=== PATIENT | female | born 2000 | race Caucasian/White ===

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

== ENCOUNTER → 2021-08-26 11:34 | Outpatient (CLI) | payer MEDICAID, SELFPAY ==
[2021-08-26 13:42] LABS: Absolute Lymphocyte Count 1.21 X10^3/uL (0.83-4.51); Absolute Neutrophil Count 4.8 X10^3/uL (2.0-7.7); Basophil# 0.02 X10^3/uL; Basophil% 0.3 % (0-1); Eosinophil# 0.12 X10^3/uL; Eosinophils% 1.7 % (0-5); Hematocrit 35.1 % (37-47); Hemoglobin 11.2 g/dL (12.0-15.0); Lymphocyte # 1.21 X10^3/ul (0.83-4.51); Lymphocyte % 17.6 % (19-41); Mean Corp Hgb Conc 31.9 g/dL (32-36); Mean Corpuscular Hgb 26.4 pg (27.0-32.0); Mean Corpuscular Volume 82.6 fL (81-99); Mean Platelet Vol. 9.8 fl (6.2-12.0); Monocyte# 0.69 X10^3/uL; NRBC Flagged by Analyzer 0 % (0-5); Neutrophil # 4.83 X10^3/uL (2.7-7.7); Neutrophil % 70.1 % (47-70); Platelet Count 296 K/mm3 (150-450); RBC Distribution Width CV 13.5 % (11.6-14.6); RBC Distribution Width SD 40.2 fl (35.1-43.9); Red Blood Count 4.25 M/mm3 (4.2-5.4); White Blood Count 6.9 K/mm3 (4.4-11.0)
[2021-08-26 14:02] LABS: Free T3 2.4 pg/mL (2.18-3.98); T4 Free Direct 0.76 ng/dL (0.76-1.46); Thyroid Stim Hormone (TSH) 1.93 uIU/mL (0.358-3.74)
[2021-08-26 14:31] LABS: HIV - WCH Non-Reactive (Nonreactive); Hepatitis B Surface Antigen Non-Reactive (Nonreactive); Hepatitis C Antibody Non-Reactive (Nonreactive); Rubella IgG Reactive (Nonreactive); Syphilis Antibodies Non-reactive
[2021-08-29 00:07] LABS: Chlamydia By Nucleic Acid AMP Negative (Negative)
[2021-08-29 14:30] LABS: Gonococcus By Nucleic Acid AMP Negative (Negative)
== END ==
PROVIDERS: PCP Pediatrics; Visit Provider Student in an Organized Health Care Education/Training Program
DX: Z11.3 Encounter for screening for infections with a predominantly sexual mode of transmission (principal); Z32.01 Encounter for pregnancy test, result positive
CPT/HCPCS: 36415; 84439; 84443; 84481; 85025; 86703; 86762; 86780; 86803; 87077; 87086; 87088; 87186; 87340; 87491; 87591

== ENCOUNTER → 2021-09-16 | Outpatient (CLI) | payer MEDICAID, SELFPAY | END | disposition home or self-care (01) | LOC: LABSPEC 09:52 | PROVIDERS: PCP Pediatrics; Visit Provider Student in an Organized Health Care Education/Training Program | DX: O26.891 Other specified pregnancy related conditions, first trimester (principal); R25.2 Cramp and spasm; Z3A.00 Weeks of gestation of pregnancy not specified | CPT/HCPCS: 87077; 87086; 87088; 87186 ==

== ENCOUNTER → 2021-10-14 17:06 | Outpatient (CLI) | payer MEDICAID, SELFPAY | PROVIDERS: PCP Pediatrics; Visit Provider Student in an Organized Health Care Education/Training Program | DX: R30.0 Dysuria (principal); Z34.82 Encounter for supervision of other normal pregnancy, second trimester | CPT/HCPCS: 87086 ==

== ENCOUNTER 2021-12-22 17:59 | Emergency (ER) | payer MEDICAID, SELFPAY ==
[2021-12-22 18:00] VITALS: BP 122/62; PULSE 81; RESP 14; TEMP 36.2; O2SAT 100; BMI 25.8
--- NOTE | 2021-12-22 18:11 | EX.ED.GENINJ ---
HPI History of Present Illness Chief Complaint: Laceration Informant: patient Onset/Context/Timing Onset: Today Current Severity: Mild Maximum Severity: Mild Narrative Narrative: Patient presents secondary to left thumb laceration as well as a small laceration to the right fifth finger. Patient states she was loading the prop maker tonight when a coffee cup broke. She has lacerations noted as above. She reports some tingling of the distal aspect of her left thumb. Patient reports her tetanus shot is up-to-date. [facility] Medical History (Updated 12/22/21 @ 18:[address] Randi Gordon MD) Graves disease Thyroid eye disease Home Medications [id number] [] 1 tab PO DAILY 12/22/21 [History Last Taken Unknown] Allergy/AdvReac Type Severity Reaction Status Date / Time latex Allergy Swelling Verified 12/22/21 18:00 Social History Smoking Status: Never smoker ROS ROS ED Constitutional Constitutional ED: Denies chills or fever(s) Eyes Eyes: Denies blurry vision or change in vision ENT ENT ED: Denies ear pain Cardiovascular Cardiovascular: Denies chest pain or palpitations Respiratory/Chest Respiratory/Chest: Denies cough or dyspnea Gastrointestinal Gastrointestinal: Denies abdominal pain, diarrhea or vomiting Genitourinary Genitourinary ED: Denies dysuria Musculoskeletal Musculoskeletal: Reports arthralgias Neurologic Neurologic: Reports paresthesias; Denies weakness Hematologic/Lymphatic Hematologic/Lymphatic: Denies easy bleeding or easy bruising Allergic/Immunologic Allergic/Immunologic ED: Denies mouth swelling or urticaria EXAM Physical Exam Const Vital Signs: 12/22/21 18:00 Temperature 97.2 F L Temperature Source Temporal Pulse Rate 81 Respiratory Rate 14 Blood Pressure 122/62 H Blood Pressure Mean 82 Pulse Ox 100 Oxygen Delivery Method Room Air Positive well nourished and well developed General Appearance ED: well developed Eyes PERRL and EOMs intact bilaterally Neck full ROM Chest Wall inspection of chest normal and palpation of chest normal Resp normal respiratory effort and clear to auscultation bilaterally Cardio regular rhythm Rate: regular rate GI GI Narrative: Gravid abdomen. Palpation: soft Extremity Extremity Narrative: Small, few millimeter laceration noted to the midportion of the right fifth finger. Bleeding well controlled. There is a 1 cm laceration to the IP joint of the left thumb along the radial side. Minimal active bleeding. Good cap refill distally. Patient does have sensation distally but states she also senses tingling. Neuro oriented x3 Sensorium / Orientation: alert Motor Exam: strength 5/5 throughout Skin Skin Narrative: Lacerations as above. PROC Procedures Lacerations Left thumb laceration: Length: 0.39 in Depth: Skin Shape: Linear Prep: Shure-Clens Laceration repair: Digital block Number of Sutures/[place]: 1 Suture Information: Ethilon, Simple and 5-0 Comment: 1 cc 2% lidocaine used digital block. Wound cleansed and irrigated. 1 simple interrupted suture 5-0 nylon placed. MDM MDM MDM Narrative Medical decision making narrative: Patient's tetanus is already up-to-date. Patient consented for suture repair. Please see procedure note for details. Treatment and Re-Evaluation Comments:: Wound care discussed. Patient to have suture removed in 5 to 7 days. Discharge Plan Triage Chief Complaint: Laceration ED Provider: Randi Gordon Dx/Rx/DC Orders Clinical Impression: Finger laceration Instructions: ED Laceration, Hand: All Closures Prescriptions: No Action 1 mg Tablet 1 tab PO DAILY RF: 0 Primary Care Provider: Jacobo Santiago Referrals: Jacobo Santiago MD [Primary Care Provider] - 5 Days for suture removal Disposition Disposition: Home, Self Care
[2021-12-22] MEDS: Lidocaine 1% (20 ml mdv) 20 ML Vial INFILT (18:45)
== END 2021-12-22 18:57 | disposition home or self-care (01) ==
PROVIDERS: Emergency Provider Emergency Medicine; PCP Pediatrics; Visit Provider Emergency Medicine
DX: S61.012A Laceration without foreign body of left thumb without damage to nail, initial encounter (principal); S61.216A Laceration without foreign body of right little finger without damage to nail, initial encounter; W25.XXXA Contact with sharp glass, initial encounter
CPT/HCPCS: 12001; 99283

== ENCOUNTER 2022-01-07 12:45 | Outpatient (CLI) | payer MEDICAID, SELFPAY ==
[2022-01-07] VITALS (9 sets, daily range): BP systolic 117–143; BP diastolic 57–77; PULSE 94–116; RESP 20; TEMP 36.6; O2SAT 99–100; BMI 25.4
[2022-01-07] MEDS: Betamethasone/Betamethasone 30 MG/5 ML Vial 12 MG IM (14:24)
[2022-01-07 14:30] LABS: Absolute Lymphocyte Count 2.03 X10^3/uL (0.83-4.51); Absolute Neutrophil Count 10.3 X10^3/uL (2.0-7.7); Basophil# 0.03 X10^3/uL; Basophil% 0.2 % (0-1); Eosinophil# 0.14 X10^3/uL; Hematocrit 32.1 % (37-47); Hemoglobin 9.9 g/dL (12.0-15.0); Lymphocyte # 2.03 X10^3/ul (0.83-4.51); Mean Corp Hgb Conc 30.8 g/dL (32-36); Mean Corpuscular Hgb 25.2 pg (27.0-32.0); Mean Corpuscular Volume 81.7 fL (81-99); Monocyte# 0.76 X10^3/uL; Monocyte% 5.6 % (0-10); NRBC Flagged by Analyzer 0.1 % (0-5); Neutrophil # 10.26 X10^3/uL (2.7-7.7); Neutrophil % 76.2 % (47-70); Platelet Count 270 K/mm3 (150-450); RBC Distribution Width CV 14.8 % (11.6-14.6); RBC Distribution Width SD 43.8 fl (35.1-43.9); Red Blood Count 3.93 M/mm3 (4.2-5.4); White Blood Count 13.5 K/mm3 (4.4-11.0)
[2022-01-07] MEDS: Lactated Ringers 1,000 ML 100 ML IV (14:30)
[2022-01-07] MEDS: Magnesium Sulfate 4gm/100mL 4 GM/100 ML IV.SOLN. IV (14:33)
[2022-01-07 14:36] LABS: Hematocrit 29.4 % (37-47); Hemoglobin 8.9 g/dL (12.0-15.0); Mean Corp Hgb Conc 30.3 g/dL (32-36); Mean Corpuscular Hgb 24.9 pg (27.0-32.0); Mean Corpuscular Volume 82.1 fL (81-99); Mean Platelet Vol. 9.4 fl (6.2-12.0); Platelet Count 277 K/mm3 (150-450); RBC Distribution Width CV 14.9 % (11.6-14.6); RBC Distribution Width SD 44.8 fl (35.1-43.9); Red Blood Count 3.58 M/mm3 (4.2-5.4); White Blood Count 11.8 K/mm3 (4.4-11.0)
[2022-01-07 14:40] LABS: Glucose Challenge Gest 1H 50g 85 mg/dL (70-140)
[2022-01-07 14:41] LABS: Partial Thromboplast Time 24.6 Seconds (24.1-36.2)
[2022-01-07 14:42] LABS: Fibrinogen 473 mg/dl (203-444)
--- NOTE | 2022-01-07 15:00 | PCM.HP.OB ---
HPI - General HPI Narrative NELLA WHITE, is a 21 F at 25 2/7 weeks gestation by [id number] US sent from the office with c/o lower abdominal and back pain, cramping, spotting x 3 days with decreased movement. Office US showed a 7.5 x 2.4 x 3.5cm bleed between the chorion and amnion. PFSH PFSH Medical History (Updated 01/07/22 @ 15:[address] Tamar Krause MD) Graves disease Thyroid eye disease Home Medications [id number] [] 1 tab PO DAILY 12/22/21 [History Last Taken 01/07/22 07:30 1 tab] Allergy/AdvReac Type Severity Reaction Status Date / Time latex Allergy Swelling Verified 01/07/22 14:08 Family History (Updated 01/07/22 @ 15:[address] Tamar Krause MD) Other Heart disease Surgical History (Updated 01/07/22 @ 15:[address] Tamar Krause MD) No history of previous surgery Social History Smoking Status: Never smoker History 4 Elective abortions 0 Hx Para 2 Spontaneous abortions 1 Hx # Term Pregnancies 1 Ectopic pregnancies Hx # Pregnancies 1 Multiple births # of living children 2 Past Pregnancies Del. Date Name GA/Weeks Outcome Route Bth Weight Infant Gen Labor Lgth Anesthesia Del Locatn Provider FOB Unknown Altaf 38 live - full term [id number] Male 19 epidural Unknown Sapna 35 live - [id number] Female 3 epidural Unknown 11 spontaneous Delivery Date: No notes to display [facility] Date: No notes to display NST FHR Rate Baby A Baseline: 140 Variability:: Minimal Accelerations:: None Decelerations:: Variable NST Reactive:: Appropriate for gestational age FHR Category:: Category II Uterine Activity:: 0-1/10 min Vital Signs Vital Signs Vital Signs: 01/07/22 13:59 01/07/22 14:35 01/07/22 14:40 Temperature 97.8 F Temperature Source Temporal Pulse Rate 94 103 H Blood Pressure 127/61 H BP Systolic 127 BP Diastolic 61 Pulse Ox 100 100 01/07/22 14:41 01/07/22 14:45 01/07/22 14:50 Temperature Temperature Source Pulse Rate 102 H 116 H 110 H Blood Pressure 122/61 H 117/59 L 124/63 H BP Systolic 122 117 124 BP Diastolic 61 59 63 Pulse Ox 100 99 01/07/22 14:55 Temperature Temperature Source Pulse Rate 107 H Blood Pressure 130/67 H BP Systolic 130 BP Diastolic 67 Pulse Ox 99 Weight Weight: 67.132 kg Body Mass Index (BMI) 25.4 Physical Exam Const alert and oriented x3 Constitutional Narrative: writhing intermittently HEENT normocephalic Head and Scalp: atraumatic Resp normal respiratory effort, normal air movement and clear to auscultation bilaterally Cardio regular rate and regular rhythm GI normal to inspection, nondistended, normoactive bowel sounds, soft to palpation, non-tender and non-distended Inspection: gravid external exam normal Narrative: SSE - no blood in vaginal vault, cervix appears closed SVE - closed, long, high Extremity full ROM Skin no rashes or lesions noted Psych mental status grossly normal Labs Labs Labs: Blood Type AB POSITIVE Antibody Screen Pending Hct 32.1 % (37-47) L Hgb 9.9 g/dL (12.0-15.0) L Syphilis Total Ab Non-reactive Rubella IgG Antibody Reactive (Nonreactive) Hep Bs Antigen Non-Reactive (Nonreactive) Neisseria gonorrhoeae DNA (SHELLY) Negative (Negative) HIV 1&2 Antibody Non-Reactive (Nonreactive) Glucose 1 Hr 50 gm 85 mg/dL (70-140) Group B Strep DNA Pending Miscellaneous Test Assessment & Plan (1) 25 weeks gestation of : PLAN: Office US - CEPHALIC, EFW 792g (39th%) (2) Placenta abruptio, antepartum: PLAN: Magnesium for neuroprotection Betamethasone Advised transport to [place] Reviewed with patient maternal and risks of placental abruption including potential complication or delivery in transport. CBC stable from office with normal coags
[2022-01-07] MEDS: Magnesium Sulfate 20 GM/500 ML BAG 50 GM CONT INF (15:06)
[2022-01-07] MEDS: Magnesium Sulfate 4gm/100mL 2 GM/50 ML IV.SOLN. IV (15:07)
[2022-01-07 15:44] LABS: Group B Strep DNA By PCR Negative (Negative); Internal Control PASS; Probe Check PASS; Specimen Processing Control PASS
== END 2022-01-07 23:59 | disposition short-term general hospital (02) ==
LOC: WOBLAB 12:45 → WPOUT 13:58 → WP 13:58
PROVIDERS: Obstetrics & Gynecology; PCP Pediatrics; Visit Provider Obstetrics & Gynecology
DX: O45.92 Premature separation of placenta, unspecified, second trimester (principal); O26.852 Spotting complicating pregnancy, second trimester; O36.8120 Decreased fetal movements, second trimester, not applicable or unspecified; Z3A.25 25 weeks gestation of pregnancy
CPT/HCPCS: 96360; 96361; 36415; 59025; 59050; 82950; 85025; 85027; 85384; 85610; 85730; 86850; 86900; 86901; 86920; 86922; 87081; 87653; 96372; 99218; J7120; G0378; J0702

== ENCOUNTER 2022-11-23 03:06 | Emergency (ER) | payer MEDICAID, SELFPAY ==
[2022-11-23 03:08] VITALS: BP 123/65; PULSE 138; RESP 18; TEMP 36.9; O2SAT 97; BMI 23.0
[2022-11-23 03:34] LABS: Absolute Lymphocyte Count 0.55 X10^3/uL (0.83-4.51); Absolute Neutrophil Count 11.1 X10^3/uL (2.0-7.7); Basophil# 0.01 X10^3/uL; Basophil% 0.1 % (0-1); Eosinophil# 0.07 X10^3/uL; Eosinophils% 0.6 % (0-5); Hematocrit 37.6 % (37-47); Hemoglobin 11.1 g/dL (12.0-15.0); Lymphocyte # 0.55 X10^3/ul (0.83-4.51); Lymphocyte % 4.4 % (19-41); Mean Corp Hgb Conc 29.5 g/dL (32-36); Mean Corpuscular Hgb 22.7 pg (27.0-32.0); Mean Platelet Vol. 8.7 fl (6.2-12.0); Monocyte# 0.65 X10^3/uL; Monocyte% 5.2 % (0-10); NRBC Flagged by Analyzer 0 % (0-5); Neutrophil # 11.06 X10^3/uL (2.7-7.7); Neutrophil % 89.2 % (47-70); POSITIVE DIFFERENTIAL YES; Platelet Count 377 K/mm3 (150-450); RBC Distribution Width CV 15.9 % (11.6-14.6); RBC Distribution Width SD 43.6 fl (35.1-43.9); Red Blood Count 4.88 M/mm3 (4.2-5.4); White Blood Count 12.4 K/mm3 (4.4-11.0)
[2022-11-23 03:40] LABS: Differential Indicated SCAN CRITERIA MET
[2022-11-23 03:42] LABS: Anion Gap 5 (5-15); BUN 21 mg/dL (7-18); BUN/Creat Ratio 24.4 RATIO (10-20); Calcium,Total 9.1 mg/dL (8.5-10.1); Chloride 106 mmol/L (98-107); Creatinine, Serum 0.86 mg/dL (0.55-1.02); EST Glomerular Filtration Rate 88 mL/min (>60); Est Glom Filt Rate - Afr Amer 107 mL/min (>60); Glucose 171 mg/dL (74-106); Potassium 4.3 mmol/L (3.5-5.1); Sodium Level 139 mmol/L (136-145)
[2022-11-23 03:52] LABS: Internal QC Validated? YES +Cl - CLEAR BKGD; Pregnancy, Serum, hCG Quali. NEGATIVE Negative
--- NOTE | 2022-11-23 03:55 | CT_ITS ---
INDICATION: diffuse abd pain, vomiting EXAMINATION: CT ABDOMEN AND PELVIS WITH CONTRAST - CT Abdomen And Pelvis W/ Contrast Injection TECHNIQUE: Helically acquired images were obtained of the abdomen and pelvis following IV contrast. A radiation dose optimization technique was used for this scan. IV Contrast dosage and agent: Oral contrast: None. COMPARISON: None. FINDINGS: LOWER CHEST: Unremarkable. LIVER: Unremarkable. GALLBLADDER/BILE DUCTS: Unremarkable. PANCREAS: Unremarkable. SPLEEN: Unremarkable. ADRENAL GLANDS: Unremarkable. KIDNEYS / URETERS: Unremarkable. BOWEL / MESENTERY: Fluid distended nondilated small bowel in the mid to lower abdomen. No bowel obstruction. APPENDIX: Identified and normal. No evidence of acute appendicitis. PERITONEUM: No free air. No free fluid. VESSELS: Abdominal aorta is normal caliber. RETROPERITONEUM: Unremarkable. REPRODUCTIVE ORGANS: Unremarkable. BLADDER: Unremarkable. ABDOMINAL WALL: Unremarkable. BONES: No acute abnormality. OTHER: None. CT/Abdomen/Pelvis W IV Cont ONLY IMPRESSION: Fluid-filled distended small bowel can be seen with enteritis. No bowel obstruction. Electronically Signed: Estefani Jett MD at 4:34 EST ,
--- NOTE | 2022-11-23 03:56 | ED.VIS.GI ---
HPI HPI - GI History of Present Illness Chief Complaint: Nausea/Vomiting Informant: patient Abdominal Pain/Flank Pain Onset: Hours (8 or so) Context: Gradual Onset Timing: Continuous Quality: Aching Location: - (my scar lower abd) Current Severity: Moderate Maximum Severity: Moderate Worsened by: - (vomiting) Relieved by: Nothing Nausea/Vomiting/Emesis GI Symptom: Positive for Nausea and Vomiting Onset: Hours (8) Quality: Positive for Nonbilious; Negative for Blood streaks, Coffee ground or Hematemesis Severity: Severe Diarrhea/Melena/Hematochezia GI Symptom: Positive for - (last BM yesterday, normal); Negative for Diarrhea, Melena or Hematochezia Associated Symptoms Associated Symptoms: Negative for Dysuria, Frequency, Hematuria or Urgency Narrative Narrative: Patient states she presents with vomiting that is severe and she cannot keep anything down. She has had pain in her lower abdomen that started before the nausea/vomiting. She had a prior no other abdominal surgeries. This was remote. She denies any fevers, chills, diarrhea, hematemesis, bright red blood per rectum, or known sick contacts. No respiratory symptoms. [facility] Medical History Graves disease Thyroid eye disease Home Medications metoclopramide HCl 10 mg tablet 10 mg PO Q6H PRN nausea and vomiting #16 tabs 11/23/22 [Rx Last Taken Unknown] Allergy/AdvReac Type Severity Reaction Status Date / Time latex Allergy Swelling Verified 01/07/22 14:08 Family History (Updated 01/07/22 @ 15:[address] Tamar Krause MD) Other Heart disease Surgical History Delivery by section No history of previous surgery Social History Smoking Status: Never smoker ROS ROS ED Constitutional Constitutional ED: Denies chills or fever(s) Eyes Eyes: Denies change in vision or diplopia ENT ENT ED: Denies rhinorrhea or sore throat Cardiovascular Cardiovascular: Denies chest pain or palpitations Respiratory/Chest Respiratory/Chest: Denies cough or dyspnea Gastrointestinal Gastrointestinal: Reports abdominal pain, nausea and vomiting; Denies diarrhea or melena Genitourinary Genitourinary ED: Denies dysuria or hematuria Musculoskeletal Musculoskeletal: Denies back pain or neck pain Integumentary Denies abscess or rash Neurologic Neurologic: Denies headache(s), paresthesias or weakness Psychiatric Psychiatric: Denies anxiety or suicidal thoughts EXAM Physical Exam Const Vital Signs: 11/23/22 03:08 Temperature 98.5 F Temperature Source Temporal Pulse Rate 138 H Respiratory Rate 18 Blood Pressure 123/65 H Blood Pressure Mean 84 Pulse Ox 97 Oxygen Delivery Method Room Air Positive well nourished and well developed General Appearance ED: well developed and NAD HEENT Reports moist mucous membranes normocephalic and atraumatic Eyes PERRL and EOMs intact bilaterally Neck full ROM and supple Resp normal respiratory effort and clear to auscultation bilaterally Cardio regular rate, regular rhythm and no murmurs Rate: tachycardic GI non-distended GI Narrative: Diffuse tenderness with voluntary guarding throughout, limiting the exam. Normal inspection of the abdominal wall. Auscultation: hypoactive bowel sounds Palpation: soft Back/Spine no CVA tenderness General Back: other FROM Extremity normal to inspection and full ROM General Extremety ED: Negative for edema, pulses abnormal or tenderness General Extremity: Negative for edema or pulses abnormal Neuro oriented x3, CN's II-XII intact bilaterally and no sensory deficits noted Sensorium / Orientation: awake and alert Motor Exam: strength 5/5 throughout Skin no rashes or lesions noted and no wounds MDM MDM MDM Narrative Medical decision making narrative: Labs show a leukocytosis that is relatively mild, although there is a trend toward a leftward shift no bands; chemistries are consistent with prerenal azotemia likely due to acute dehydration. Serum is negative. Given her tachycardia which could be due to dehydration, her leukocytosis, and her abdominal exam, I performed imaging with an IV contrasted CT scan. This was considering other acute abnormalities in the differential, such as a bowel obstruction, appendicitis, other possible GI or [employer]-related issues/etiologies. In the meantime she was treated with IV fluids, Toradol, Zofran, and later Reglan. This did help some and she was able to tolerate some oral fluids. My interpretation of the CT scan agrees with the radiologist. It is negative for anything acute, and shows signs consistent with enteritis. Supportive care advised for all of this. Lab Data Attestation: I reviewed the patient's lab results. Labs: Laboratory Results - last 24 hr 11/23/22 11/23/22 11/23/22 03:15 03:15 03:15 WBC 12.4 H RBC 4.88 Hgb 11.1 L Hct 37.6 MCV 77.0 L MCH 22.7 L MCHC 29.5 L RDW Std Deviation 43.6 RDW Coeff of Abner 15.9 H Plt Count 377 MPV 8.7 Immature Gran % (Auto) 0.500 Neut % (Auto) 89.2 H Lymph % (Auto) 4.4 L Wise % (Auto) 5.2 Eos % (Auto) 0.6 Baso % (Auto) 0.1 Absolute Neuts (auto) 11.1 H Absolute Lymphs (auto) 0.55 L Nucleated RBC % 0 Differential Comment SCANNED Sodium 139 Potassium 4.3 Chloride 106 Carbon Dioxide 28.0 Anion Gap 5 BUN 21 H Creatinine 0.86 Estim Creat Clear Calc 85.60 Est GFR (MDRD) Af Amer 107 Est GFR (MDRD) Non-Af 88 BUN/Creatinine Ratio 24.4 H Glucose 171 H Calcium 9.1 Total Bilirubin Direct Bilirubin AST ALT Alkaline Phosphatase Total Protein Albumin Globulin Lipase Serum , Qual NEGATIVE 11/23/22 03:15 WBC RBC Hgb Hct MCV MCH MCHC RDW Std Deviation RDW Coeff of Abner Plt Count MPV Immature Gran % (Auto) Neut % (Auto) Lymph % (Auto) Wise % (Auto) Eos % (Auto) Baso % (Auto) Absolute Neuts (auto) Absolute Lymphs (auto) Nucleated RBC % Differential Comment Sodium Potassium Chloride Carbon Dioxide Anion Gap BUN Creatinine Estim Creat Clear Calc Est GFR (MDRD) Af Amer Est GFR (MDRD) Non-Af BUN/Creatinine Ratio Glucose Calcium Total Bilirubin 0.40 Direct Bilirubin 0.10 AST 20 ALT 33 Alkaline Phosphatase 78 Total Protein 8.2 Albumin 3.9 Globulin 4.3 H Lipase 102 Serum , Qual Radiography Diagnostic Testing: Clinical Impression(s) from Imaging Studies Abdomen/Pelvis CT 11/23/22 03:55 IMPRESSION: Fluid-filled distended small bowel can be seen with enteritis. No bowel obstruction. Electronically Signed: Estefani Jett MD at 4:34 EST , Discharge Plan Triage Chief Complaint: Nausea/Vomiting ED Provider: Malachi Barbour Dx/Rx/DC Orders Clinical Impression: Acute gastritis without bleeding, Acute dehydration Instructions: ED Diet Vomiting Diarrhea, ED Gastroenteritis, Viral (Adult) Prescriptions: New metoclopramide HCl [metoclopramide HCl] 10 MG tablet 10 mg PO Q6H PRN (Reason: nausea and vomiting) Qty: 16 0RF Primary Care Provider: Jacobo Santiago Referrals: Jacobo Santiago MD [Primary Care Provider] - 3-5 Days if not improving Disposition Disposition: Home, Self Care
[2022-11-23] MEDS: 0.9% Normal Saline 1,000 ML 999 ML IV (04:02)
[2022-11-23] MEDS: Ondansetron 4 MG/2 ML Vial IV (04:02)
[2022-11-23] MEDS: Ketorolac 15 MG/ML Vial IV (04:02)
[2022-11-23 04:06] LABS: Differential Comment SCANNED
[2022-11-23 04:26] LABS: AST(SGOT) 20 U/L (15-37); Alanine Aminotransfer ALT/SGPT 33 U/L (13-56); Albumin, Serum 3.9 g/dL (3.2-5.0); Alkaline Phosphatase 78 U/L (45-117); Globulin 4.3 g/dL (2.2-4.2); Lipase 102 U/L (73-393); Protein, Total 8.2 g/dL (6.4-8.2)
[2022-11-23] MEDS: Metoclopramide 10 MG/2 ML Vial 5 MG IV (05:01)
== END 2022-11-23 06:11 | disposition home or self-care (01) ==
PROVIDERS: Emergency Provider Emergency Medicine; PCP Pediatrics; Visit Provider Emergency Medicine
DX: K29.00 Acute gastritis without bleeding (principal); E86.0 Dehydration
CPT/HCPCS: 74177; 80048; 80076; 83690; 84703; 85025; 96361; 96374; 96375; 99285; J7030; Q9967; A4216; J2405

== ENCOUNTER 2023-03-02 18:18 | Emergency (ER) | payer MEDICAID, SELFPAY ==
[2023-03-02 18:19] VITALS: BP 109/67; PULSE 79; RESP 16; TEMP 37.3; O2SAT 100; BMI 23.6
--- NOTE | 2023-03-02 20:51 | US_ITS ---
INDICATION: abdominal pain EXAMINATION: Ultrasound US OB Transvaginal TECHNIQUE: Transvaginal pelvic ultrasound was performed. Grayscale, spectral waveform, and color flow Doppler evaluation of the adnexa. COMPARISON: None. LMP: [01/17/2023 correlating with 6 weeks 2 days gestation estimated delivery date October 24, 2023 FINDINGS: UTERUS: Retroverted uterus 10.8 x 7.0 x 7.3 cm with unremarkable myometrium. Multiple anechoic nabothian cysts. RIGHT OVARY: 1.6 x 1.9 x 3.2 cm. Multiple normal small follicles. 1.7 cm complex luteal cyst. Preserved color vascular flow. . LEFT OVARY: 2.7 x 2.8 x 1.2 cm. Multiple normal small follicles.. FREE FLUID: None. INTRAUTERINE GESTATIONAL SAC(s) (size/shape): Single fundal gestational sac with normal shape. YOLK SAC: Solitary normal yolk sac POLE: Single pole with crown-rump length 1.6 cm correlating with 7 weeks 6 days gestation and estimated delivery date October 13, 2023 HEART MOTION: 164 bpm. PLACENTA: Not visualized due to age. SUBCHORIONIC HEMORRHAGE: Small perigestational hemorrhage involving less than 25% sac circumference.. AMNIOTIC FLUID: Qualitatively normal. US/Transvaginal w/Preg US IMPRESSION: Retroverted uterus with single live intrauterine . Normal heart rate. Estimated gestational age is discordant, advanced at 7 weeks 6 days by crown-rump length compared with 6 weeks 2 days by LMP as above.. Small perigestational hemorrhage. Normal ovaries with complex right luteal cyst. Electronically Signed: Pratik Kendall MD at 23:37 EDT ,
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
[2023-03-02 21:50] VITALS: BP 116/47; PULSE 83; RESP 17; O2SAT 95
[2023-03-02 22:23] LABS: Color, Urine Yellow (Yellow); Glucose, Dipstick Normal (Normal); Ketone-Dipstick 5 mg/dl (Negative); Leukocyte Esterase-Dipstick 100 /ul (Negative); Mucous, Urine 0 SEEN /hpf (<or=2+); Nitrite-Dipstick Positive (Negative); Occult Blood-Urine 10 /ul (Negative); Protein-Dipstick 15 mg/dl (Negative); Urine Bilirubin Dipstick Negative (Negative); Urine Clarity Cloudy (Clear); Urine Urobilinogen 1 mg/dl (Normal)
[2023-03-02 22:31] LABS: Bacteria 3+ /hpf (None Seen); Red Blood Cells-Urine 0-5 SEEN /hpf (0-5); Squamous Epithelial Cells - UA 0-5 SEEN /hpf (5-10); White Blood Cells 25-50 SEEN /hpf (0-5)
[2023-03-02] MEDS: Cephalexin 250 MG Capsule 500 MG PO (23:10)
== END 2023-03-02 23:55 | disposition home or self-care (01) ==
PROVIDERS: Emergency Provider Student in an Organized Health Care Education/Training Program; PCP Pediatrics; Visit Provider Student in an Organized Health Care Education/Training Program
DX: O20.0 Threatened abortion (principal); O23.41 Unspecified infection of urinary tract in pregnancy, first trimester; Z3A.01 Less than 8 weeks gestation of pregnancy; O26.891 Other specified pregnancy related conditions, first trimester
CPT/HCPCS: 76817; 81001; 84702; 87077; 87086; 87088; 87186; 99282; A4216

== ENCOUNTER → 2023-03-05 | Outpatient (CLI) | payer MEDICAID, SELFPAY ==
[2023-03-07 05:07] LABS: Chlamydia By Nucleic Acid AMP Negative (Negative)
[2023-03-07 08:32] LABS: Gonococcus By Nucleic Acid AMP Negative (Negative)
[2023-03-12 17:18] LABS: HPV Reflexed? NOT INDICATED
== END | disposition home or self-care (01) ==
LOC: LABSPEC 10:30
PROVIDERS: PCP Pediatrics; Visit Provider Obstetrics & Gynecology
DX: Z34.90 Encounter for supervision of normal pregnancy, unspecified, unspecified trimester (principal)
CPT/HCPCS: 87491; 87591; 88175; G0145

== ENCOUNTER → 2023-03-19 | Outpatient (CLI) | payer MEDICAID, SELFPAY ==
[2023-03-19 12:21] LABS: Absolute Lymphocyte Count 1.53 X10^3/uL (0.83-4.51); Absolute Neutrophil Count 7.3 X10^3/uL (2.0-7.7); Basophil# 0.02 X10^3/uL; Basophil% 0.2 % (0-1); Eosinophil# 0.12 X10^3/uL; Eosinophils% 1.3 % (0-5); Hematocrit 32.7 % (37-47); Hemoglobin 10.1 g/dL (12.0-15.0); Lymphocyte # 1.53 X10^3/ul (0.83-4.51); Lymphocyte % 16.2 % (19-41); Mean Corp Hgb Conc 30.9 g/dL (32-36); Mean Corpuscular Hgb 23.6 pg (27.0-32.0); Mean Corpuscular Volume 76.4 fL (81-99); Mean Platelet Vol. 9.3 fl (6.2-12.0); Monocyte# 0.47 X10^3/uL; NRBC Flagged by Analyzer 0 % (0-5); Neutrophil # 7.26 X10^3/uL (2.7-7.7); Neutrophil % 76.9 % (47-70); Platelet Count 369 K/mm3 (150-450); RBC Distribution Width CV 15.5 % (11.6-14.6); RBC Distribution Width SD 42.7 fl (35.1-43.9); Red Blood Count 4.28 M/mm3 (4.2-5.4); White Blood Count 9.4 K/mm3 (4.4-11.0)
[2023-03-19 12:24] LABS: NATERA MAILED SPECIMEN
[2023-03-19 13:07] LABS: T4 Free Direct 0.95 ng/dL (0.76-1.46)
[2023-03-19 13:27] LABS: HIV - WCH Non-Reactive (Nonreactive); Hepatitis B Surface Antigen Non-Reactive (Nonreactive); Hepatitis C Antibody Non-Reactive (Nonreactive); Rubella IgG Reactive (Nonreactive); Syphilis Antibodies Non-reactive
[2023-03-22 17:07] LABS: Anti-Cardiolipin Ab, IgA, Qn < 9 APL U/mL (0-11); Anti-Cardiolipin Ab, IgG, Qn < 9 GPL U/mL (0-14); Anti-Cardiolipin Ab, IgM, Qn 70 MPL U/mL (0-12); Beta-2-Glycoprotein I IgA <9 (0-25); Beta-2-Glycoprotein I IgG <9 (0-20); Beta-2-Glycoprotein I IgM <9 (0-32); Dilute Prothrombin Time (dPT) 38.6 sec (0.0-47.6); Dilute Russell Viper Venom 38.1 sec (0.0-47.0); Interpretation Comment: (.); PTT-LA 30.9 sec (0.0-43.5); Thrombin Time 14.5 sec (0.0-23.0); Thyroid Peroxidase AB > 600 IU/mL (0-34); dPT Confirm Ratio 1.09 Ratio (0.00-1.34)
== END | disposition home or self-care (01) ==
LOC: BIMLAB 11:01
PROVIDERS: PCP Pediatrics; Referring Provider Obstetrics & Gynecology; Visit Provider Obstetrics & Gynecology
DX: Z34.90 Encounter for supervision of normal pregnancy, unspecified, unspecified trimester (principal); E05.00 Thyrotoxicosis with diffuse goiter without thyrotoxic crisis or storm; Z87.59 Personal history of other complications of pregnancy, childbirth and the puerperium; Z86.39 Personal history of other endocrine, nutritional and metabolic disease; N96 Recurrent pregnancy loss
CPT/HCPCS: 36415; 84439; 84443; 85025; 86146; 86147; 86376; 86703; 86762; 86780; 86803; 86850; 86900; 86901; 87340

== ENCOUNTER → 2023-04-02 | Outpatient (CLI) | payer MEDICAID, SELFPAY ==
--- NOTE | 2023-04-02 16:06 | US_ITS ---
STUDY: THYROID ULTRASOUND REASON FOR EXAM: Female, 22 years old. Elevated lab results . History of Graves'' disease. TECHNIQUE: Ultrasound evaluation of the thyroid was performed with real-time and static alegria-scale imaging. COMPARISON: None. FINDINGS: RIGHT LOBE: The right lobe of the thyroid gland measures 4.6 cm x 2 cm x 1.3 cm. There is a heterogeneous echotexture. There are no demonstrated solid, cystic or complex lesions. LEFT LOBE: The left lobe of the thyroid gland is slightly enlarged and measures 5.1 cm x 1.7 cm x 1.1 cm. There is a heterogeneous echotexture. There are no demonstrated solid, cystic or complex lesions. ISTHMUS: The isthmus measures 3 mm. The regional lymph nodes are normal. US/Thyroid IMPRESSION: Mild enlargement of the left lobe of the thyroid. Heterogeneous echotexture of both thyroid lobes. Electronically Signed: Fransico Zaragoza MD at 13:00 EDT ,
== END | disposition home or self-care (01) ==
LOC: US 16:05
PROVIDERS: Referring Provider Obstetrics & Gynecology; Visit Provider Obstetrics & Gynecology
DX: Z86.39 Personal history of other endocrine, nutritional and metabolic disease (principal)
CPT/HCPCS: 76536

== ENCOUNTER → 2023-04-09 | Outpatient (CLI) | payer MEDICAID, SELFPAY | END | disposition home or self-care (01) | LOC: LABSPEC 16:46 | PROVIDERS: Referring Provider Obstetrics & Gynecology; Visit Provider Obstetrics & Gynecology | DX: O09.90 Supervision of high risk pregnancy, unspecified, unspecified trimester (principal); Z3A.00 Weeks of gestation of pregnancy not specified | CPT/HCPCS: 87077; 87086; 87088; 87186 ==

== ENCOUNTER 2023-04-24 16:16 | Emergency (ER) | payer MEDICAID, SELFPAY ==
[2023-04-24 16:18] VITALS: BP 110/56; PULSE 114; RESP 17; TEMP 36.6; O2SAT 100; BMI 22.4
--- NOTE | 2023-04-24 17:11 | US_ITS ---
INDICATION: vaginal bleeding EXAMINATION: Ultrasound US OB Limited 1 Or More Fetus TECHNIQUE: Transabdominal and transvaginal (for optimal evaluation of the fetus) pelvic ultrasound was performed. Grayscale, spectral waveform, and color flow Doppler evaluation of the adnexa. COMPARISON: 03/02/2023 with BOOGIE 10/11/2023 LMP: 01/04/2023 Beta-hCG: Unknown. Provided EGA: 15 weeks 5 days FINDINGS: INTRAUTERINE GESTATION(s): Single. ESTIMATED GESTATIONAL AGE: 15 weeks 4 days ESTIMATED DUE DATE (BOOGIE): 10/12/2023 HEART MOTION is 144 bpm. AMNIOTIC FLUID: Qualitatively normal. ESTIMATED WEIGHT: 124 g or 0 lbs. 4 oz. Percentile 22nd%. BIOPHYSICAL PROFILE (BPP): Not assessed. PRESENTATION: Variable PLACENTA: Posterior. There is no placenta previa or abruption. CERVIX: The cervix is closed. Cervical length 3.5 cm. US/OB Limited With Biometrics IMPRESSION: Single live intrauterine of 15 weeks 4 days. No acute abnormality. Electronically Signed: Davide Moran MD at 18:55 EDT ,
--- NOTE | 2023-04-24 17:16 | EDS_ITS ---
HPI HPI - Female History of Present Illness Chief Complaint: Vag Bld, Preg Narrative Narrative: 22-year-old female presenting with vaginal spotting. She states its been mild today. She reports that she had some blood clots and more significant bleeding yesterday. She states she is 15 weeks and 4 days . She had confirmed a uterine . She denies abdominal pain. No fevers or chills. She denies urinary complaints. No constipation or diarrhea. Patient on blood thinners but she does not know of why. She sees Dr. Nash and was referred to the ER yesterday but decided to wait till today. She does not know her blood type. PFSH PFSH Home Medications aspirin 81 mg capsule 81 mg PO DAILY 04/24/23 [History Last Taken Unknown] enoxaparin 40 mg/0.4 mL subcutaneous syringe mg 04/24/23 [History Last Taken Unknown] levothyroxine 50 mcg tablet mcg 04/24/23 [History Last Taken Unknown] potassium chloride 20 mEq tablet,extended release 40 meq PO DAILY #22 tabs 04/24/23 [Rx Last Taken Unknown] sertraline 50 mg tablet mg 04/24/23 [History Last Taken Unknown] Allergy/AdvReac Type Severity Reaction Status Date / Time latex AdvReac Hives Verified 04/24/23 16:18 Social History Smoking Status: Never smoker ROS ROS ED Constitutional Constitutional ED: Denies chills or fever(s) Eyes Eyes: Denies change in vision or diplopia ENT ENT ED: Denies rhinorrhea or sore throat Cardiovascular Cardiovascular: Denies chest pain, palpitations or racing heartbeat Respiratory/Chest Respiratory/Chest: Denies cough or dyspnea Gastrointestinal Gastrointestinal: Denies abdominal pain or vomiting Genitourinary Genitourinary ED: Reports other Details: Vaginal spotting Musculoskeletal Musculoskeletal: Denies arthralgias Integumentary Denies abscess or Abrasions Neurologic Neurologic: Denies headache(s) EXAM Physical Exam Const Vital Signs: 04/24/23 16:18 Temperature 97.9 F Temperature Source Temporal Pulse Rate 114 H Respiratory Rate 17 Blood Pressure 110/56 L Blood Pressure Mean 74 Pulse Ox 100 Oxygen Delivery Method Room Air Positive well nourished General Appearance ED: NAD HEENT Reports moist mucous membranes Eyes PERRL and EOMs intact bilaterally Resp normal respiratory effort and clear to auscultation bilaterally Cardio regular rate Rate: tachycardic GI normal to inspection, nondistended, normoactive bowel sounds Neuro oriented x3 Sensorium / Orientation: alert Skin no rashes or lesions noted and no wounds MDM MDM MDM Narrative Medical decision making narrative: Patient was discussed with Dr. Nash. She did login and look at the patient's record. She did report to me that the patient incidentally has 2 different records and that is why there is no information in her chart. She states that the patient has antiphospholipid syndrome. She states this is why she needs to be on Lovenox and aspirin daily. She recommended obtaining some lab work and imaging. She states that she is AB positive. CBC to assess white blood cell count, hemoglobin, platelets, differential. CMP to assess liver function, renal function, glucose, anion gap, electrolytes. Urinalysis to assess for UTI. Quantitative hCG was obtained as well. Patient given a liter of normal saline. Transvaginal ultrasound ordered and pending. Shows a normal white blood cell count 7.0. Hemoglobin is 9.6 when previously it was 10.1. Platelets are normal. Renal function and liver function are normal. She does have slight hypokalemia with a potassium of 2.8. She is given 4 hemoglobins here which would bring up to 3.2. She is given a second dose to take tomorrow for home. Urinalysis negative for infection. She does not need RhoGAM. Obstetric ultrasound shows live intrauterine at 15 weeks 4 days. This was discussed with the patient. She is stable for discharge home. She is to follow-up with Dr. Nash. Impression: 1. Threatened miscarriage 2. Hypokalemia Lab Data Labs: Laboratory Results - last 24 hr 04/24/23 04/24/23 04/24/23 17:37 17:37 17:37 WBC 7.0 RBC 4.04 L Hgb 9.6 L Hct 29.7 L MCV 73.5 L MCH 23.8 L MCHC 32.3 RDW Std Deviation 40.7 RDW Coeff of Abner 15.6 H Plt Count 311 MPV 8.8 Immature Gran % (Auto) 0.600 Neut % (Auto) 79.6 H Lymph % (Auto) 11.4 L [place] % (Auto) 7.1 Eos % (Auto) 1.0 Baso % (Auto) 0.3 Absolute Neuts (auto) 5.6 Absolute Lymphs (auto) 0.80 L Nucleated RBC % 0 PT INR Sodium 137 Potassium 2.8 L Chloride 106 Carbon Dioxide 24.0 Anion Gap 7 BUN 6 L Creatinine 0.70 Estim Creat Clear Calc 109.78 Est GFR (MDRD) Af Amer 136 Est GFR (MDRD) Non-Af 112 BUN/Creatinine Ratio 8.6 L Glucose 88 Calcium 9.2 Total Bilirubin 0.40 AST 11 L ALT 12 L Alkaline Phosphatase 68 Total Protein 7.5 Albumin 3.3 Globulin 4.2 Albumin/Globulin Ratio 0.8 L HCG, Quant 86050 H Urine Color Urine Clarity Urine pH Ur Specific [place] Urine Protein Urine Glucose (UA) Urine Ketones Urine Occult Blood Urine Nitrite Urine Bilirubin Urine Urobilinogen Ur Leukocyte Esterase Urine RBC Urine WBC Ur Squamous Epith Cells Urine Bacteria Urine Mucus Blood Type 04/24/23 04/24/23 04/24/23 17:37 17:55 18:00 WBC RBC Hgb Hct MCV MCH MCHC RDW Std Deviation RDW Coeff of Abner Plt Count MPV Immature Gran % (Auto) Neut % (Auto) Lymph % (Auto) [place] % (Auto) Eos % (Auto) Baso % (Auto) Absolute Neuts (auto) Absolute Lymphs (auto) Nucleated RBC % PT 13.1 INR 1.0 Sodium Potassium Chloride Carbon Dioxide Anion Gap BUN Creatinine Estim Creat Clear Calc Est GFR (MDRD) Af Amer Est GFR (MDRD) Non-Af BUN/Creatinine Ratio Glucose Calcium Total Bilirubin AST ALT Alkaline Phosphatase Total Protein Albumin Globulin Albumin/Globulin Ratio HCG, Quant Urine Color Yellow Urine Clarity Sl. Cloudy Urine pH 6.0 Ur Specific [place] 1.025 Urine Protein 15 H Urine Glucose (UA) Normal Urine Ketones 15 H Urine Occult Blood Negative Urine Nitrite Negative Urine Bilirubin 1 H Urine Urobilinogen 1 H Ur Leukocyte Esterase 100 H Urine RBC 0 SEEN Urine WBC 5-10 SEEN Ur Squamous Epith Cells 5-10 SEEN Urine Bacteria 1+ Urine Mucus 0 SEEN Blood Type AB POSITIVE Radiography Diagnostic Testing: Clinical Impression(s) from Imaging Studies Obstetrics Ultrasound 04/24/23 17:11 IMPRESSION: Single live intrauterine of 15 weeks 4 days. No acute abnormality. Electronically Signed: Davide Moran MD at 18:55 EDT , Discharge Plan Triage Chief Complaint: Vag Bld, Preg ED Provider: Paul Paez Dx/Rx/DC Orders Instructions: ED Possible Miscarriage ... Prescriptions: New potassium chloride 20 mEq tablet extended release 40 meq PO DAILY Qty: 22 0RF No Action levothyroxine 50 mcg tablet Label Comments: PLEASE SEE ATTACHED FOR DETAILED DIRECTIONS sertraline 50 mg tablet Label Comments: TAKE 1 TABLET BY MOUTH EVERY DAY enoxaparin 40 mg/0.4 mL syringe Label Comments: 40 MG (0.4 ML) SUBCUTANEOUSLY DAILY aspirin 81 mg Capsule 81 mg PO DAILY Primary Care Provider: Care Physician,No Primary Referrals: Ade Nash MD [Med Staff - Active Staff] - As Needed Care Physician,No Primary [Primary Care Provider] - Disposition Disposition: Home, Self Care
[2023-04-24 17:54] LABS: Absolute Neutrophil Count 5.6 X10^3/uL (2.0-7.7); Basophil# 0.02 X10^3/uL; Basophil% 0.3 % (0-1); Eosinophil# 0.07 X10^3/uL; Hematocrit 29.7 % (37-47); Hemoglobin 9.6 g/dL (12.0-15.0); Lymphocyte % 11.4 % (19-41); Mean Corp Hgb Conc 32.3 g/dL (32-36); Mean Corpuscular Hgb 23.8 pg (27.0-32.0); Mean Corpuscular Volume 73.5 fL (81-99); Mean Platelet Vol. 8.8 fl (6.2-12.0); Monocyte% 7.1 % (0-10); NRBC Flagged by Analyzer 0 % (0-5); Neutrophil # 5.57 X10^3/uL (2.7-7.7); Neutrophil % 79.6 % (47-70); Platelet Count 311 K/mm3 (150-450); RBC Distribution Width CV 15.6 % (11.6-14.6); RBC Distribution Width SD 40.7 fl (35.1-43.9); Red Blood Count 4.04 M/mm3 (4.2-5.4)
[2023-04-24] MEDS: 0.9% Normal Saline 1,000 ML 999 ML IV (17:57)
[2023-04-24 18:02] LABS: Prothrombin Time (Protime)PT. 13.1 SECONDS (11.7-14.9)
[2023-04-24 18:06] LABS: Mucous, Urine 0 SEEN /hpf (<or=2+); Red Blood Cells-Urine 0 SEEN /hpf (0-5)
[2023-04-24 18:14] LABS: Color, Urine Yellow (Yellow); Glucose, Dipstick Normal (Normal); Ketone-Dipstick 15 mg/dl (Negative); Leukocyte Esterase-Dipstick 100 /ul (Negative); Nitrite-Dipstick Negative (Negative); Occult Blood-Urine Negative /ul (Negative); Protein-Dipstick 15 mg/dl (Negative); Specific Gravity, Urine 1.025 (1.002-1.030); Urine Clarity Sl. Cloudy (Clear); Urine Urobilinogen 1 mg/dl (Normal)
[2023-04-24 18:19] LABS: ALB/GLOB Ratio 0.8 RATIO (0.9-2.4); AST(SGOT) 11 U/L (15-37); Alanine Aminotransfer ALT/SGPT 12 U/L (13-56); Albumin, Serum 3.3 g/dL (3.2-5.0); Alkaline Phosphatase 68 U/L (45-117); Anion Gap 7 (5-15); BUN 6 mg/dL (7-18); BUN/Creat Ratio 8.6 RATIO (10-20); Calcium,Total 9.2 mg/dL (8.5-10.1); Chloride 106 mmol/L (98-107); EST Glomerular Filtration Rate 112 mL/min (>60); Est Glom Filt Rate - Afr Amer 136 mL/min (>60); Estimated Creatinine Clearance 109.78 ml/min; Globulin 4.2 g/dL (2.2-4.2); Glucose 88 mg/dL (74-106); Potassium 2.8 mmol/L (3.5-5.1); Protein, Total 7.5 g/dL (6.4-8.2); Sodium Level 137 mmol/L (136-145)
[2023-04-24 18:24] LABS: Bacteria 1+ /hpf (None Seen); Squamous Epithelial Cells - UA 5-10 SEEN /hpf (5-10); Urine Bilirubin Dipstick 1 mg/dL (Negative); White Blood Cells 5-10 SEEN /hpf (0-5)
--- NOTE | 2023-04-24 19:06 | ED.VIS.FEGU ---
HPI HPI - Female History of Present Illness Chief Complaint: Vag Bld, Preg PFSH PFSH Home Medications aspirin 81 mg capsule 81 mg PO DAILY 04/24/23 [History Last Taken Unknown] enoxaparin 40 mg/0.4 mL subcutaneous syringe mg 04/24/23 [History Last Taken Unknown] levothyroxine 50 mcg tablet mcg 04/24/23 [History Last Taken Unknown] potassium chloride 20 mEq tablet,extended release 40 meq PO DAILY #22 tabs 04/24/23 [Rx Last Taken Unknown] sertraline 50 mg tablet mg 04/24/23 [History Last Taken Unknown] Allergy/AdvReac Type Severity Reaction Status Date / Time latex AdvReac Hives Verified 04/24/23 16:18 Social History Smoking Status: Never smoker EXAM Physical Exam Const Vital Signs: 04/24/23 16:18 04/24/23 19:20 Temperature 97.9 F Temperature Source Temporal Pulse Rate 114 H 69 Respiratory Rate 17 18 Blood Pressure 110/56 L 115/68 Blood Pressure Mean 74 Pulse Ox 100 100 Oxygen Delivery Method Room Air MDM MDM Lab Data Labs: Laboratory Results - last 24 hr 04/24/23 04/24/23 04/24/23 17:37 17:37 17:37 WBC 7.0 RBC 4.04 L Hgb 9.6 L Hct 29.7 L MCV 73.5 L MCH 23.8 L MCHC 32.3 RDW Std Deviation 40.7 RDW Coeff of Abner 15.6 H Plt Count 311 MPV 8.8 Immature Gran % (Auto) 0.600 Neut % (Auto) 79.6 H Lymph % (Auto) 11.4 L [place] % (Auto) 7.1 Eos % (Auto) 1.0 Baso % (Auto) 0.3 Absolute Neuts (auto) 5.6 Absolute Lymphs (auto) 0.80 L Nucleated RBC % 0 PT INR Sodium 137 Potassium 2.8 L Chloride 106 Carbon Dioxide 24.0 Anion Gap 7 BUN 6 L Creatinine 0.70 Estim Creat Clear Calc 109.78 Est GFR (MDRD) Af Amer 136 Est GFR (MDRD) Non-Af 112 BUN/Creatinine Ratio 8.6 L Glucose 88 Calcium 9.2 Total Bilirubin 0.40 AST 11 L ALT 12 L Alkaline Phosphatase 68 Total Protein 7.5 Albumin 3.3 Globulin 4.2 Albumin/Globulin Ratio 0.8 L HCG, Quant 04307 H Urine Color Urine Clarity Urine pH Ur Specific [place] Urine Protein Urine Glucose (UA) Urine Ketones Urine Occult Blood Urine Nitrite Urine Bilirubin Urine Urobilinogen Ur Leukocyte Esterase Urine RBC Urine WBC Ur Squamous Epith Cells Urine Bacteria Urine Mucus Blood Type 04/24/23 04/24/23 04/24/23 17:37 17:55 18:00 WBC RBC Hgb Hct MCV MCH MCHC RDW Std Deviation RDW Coeff of Abner Plt Count MPV Immature Gran % (Auto) Neut % (Auto) Lymph % (Auto) [place] % (Auto) Eos % (Auto) Baso % (Auto) Absolute Neuts (auto) Absolute Lymphs (auto) Nucleated RBC % PT 13.1 INR 1.0 Sodium Potassium Chloride Carbon Dioxide Anion Gap BUN Creatinine Estim Creat Clear Calc Est GFR (MDRD) Af Amer Est GFR (MDRD) Non-Af BUN/Creatinine Ratio Glucose Calcium Total Bilirubin AST ALT Alkaline Phosphatase Total Protein Albumin Globulin Albumin/Globulin Ratio HCG, Quant Urine Color Yellow Urine Clarity Sl. Cloudy Urine pH 6.0 Ur Specific [place] 1.025 Urine Protein 15 H Urine Glucose (UA) Normal Urine Ketones 15 H Urine Occult Blood Negative Urine Nitrite Negative Urine Bilirubin 1 H Urine Urobilinogen 1 H Ur Leukocyte Esterase 100 H Urine RBC 0 SEEN Urine WBC 5-10 SEEN Ur Squamous Epith Cells 5-10 SEEN Urine Bacteria 1+ Urine Mucus 0 SEEN Blood Type AB POSITIVE Radiography Diagnostic Testing: Clinical Impression(s) from Imaging Studies Obstetrics Ultrasound 04/24/23 17:11 IMPRESSION: Single live intrauterine of 15 weeks 4 days. No acute abnormality. Electronically Signed: Davide Moran MD at 18:55 EDT Reading Location ID and State: [facility] / [place] Tel , Service support , Discharge Plan Triage Chief Complaint: Vag Bld, Preg ED Provider: Paul Paez Dx/Rx/DC Orders Instructions: ED Possible Miscarriage ... Prescriptions: New potassium chloride 20 mEq tablet extended release 40 meq PO DAILY Qty: 22 0RF No Action levothyroxine 50 mcg tablet Label Comments: PLEASE SEE ATTACHED FOR DETAILED DIRECTIONS sertraline 50 mg tablet Label Comments: TAKE 1 TABLET BY MOUTH EVERY DAY enoxaparin 40 mg/0.4 mL syringe Label Comments: 40 MG (0.4 ML) SUBCUTANEOUSLY DAILY aspirin 81 mg Capsule 81 mg PO DAILY Primary Care Provider: Care Physician,No Primary Referrals: Ade Nash MD [Med Staff - Active Staff] - As Needed Care Physician,No Primary [Primary Care Provider] - Disposition Disposition: Home, Self Care Discharge Date/Time: 04/24/23 19:20
[2023-04-24] MEDS: Potassium Chloride Oral Tablet 20 MEQ 40 MEQ PO (19:16)
[2023-04-24 19:20] VITALS: BP 115/68; PULSE 69; RESP 18; O2SAT 100
== END 2023-04-24 19:20 | disposition home or self-care (01) ==
PROVIDERS: Emergency Provider Student in an Organized Health Care Education/Training Program; Visit Provider Student in an Organized Health Care Education/Training Program
DX: O20.0 Threatened abortion (principal); D68.61 Antiphospholipid syndrome; O99.282 Endocrine, nutritional and metabolic diseases complicating pregnancy, second trimester; Z3A.15 15 weeks gestation of pregnancy; E87.6 Hypokalemia; O99.112 Other diseases of the blood and blood-forming organs and certain disorders involving the immune mechanism complicating pregnancy, second trimester; Z79.82 Long term (current) use of aspirin; Z79.01 Long term (current) use of anticoagulants
CPT/HCPCS: 76816; 80053; 81001; 84702; 85025; 85610; 86900; 86901; 96360; 99284; J7030; A4216

== ENCOUNTER 2023-05-21 00:18 | Outpatient (CLI) | payer MEDICAID, SELFPAY ==
[2023-05-21] VITALS (7 sets, daily range): BP systolic 94–132; BP diastolic 50–77; PULSE 75–88; TEMP 37–37.3; O2SAT 99–100; BMI 23.1
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
[2023-05-21] MEDS: Acetaminophen 500 MG Tablet 1000 MG PO (01:09)
[2023-05-21 01:12] LABS: Absolute Lymphocyte Count 1.82 X10^3/uL (0.83-4.51); Absolute Neutrophil Count 8.1 X10^3/uL (2.0-7.7); Basophil# 0.03 X10^3/uL; Basophil% 0.3 % (0-1); Eosinophil# 0.07 X10^3/uL; Eosinophils% 0.7 % (0-5); Hematocrit 27.2 % (37-47); Hemoglobin 8.3 g/dL (12.0-15.0); Lymphocyte # 1.82 X10^3/ul (0.83-4.51); Lymphocyte % 17.1 % (19-41); Mean Corp Hgb Conc 30.5 g/dL (32-36); Mean Corpuscular Hgb 23.4 pg (27.0-32.0); Mean Corpuscular Volume 76.8 fL (81-99); Mean Platelet Vol. 8.7 fl (6.2-12.0); Monocyte# 0.51 X10^3/uL; Monocyte% 4.8 % (0-10); NRBC Flagged by Analyzer 0 % (0-5); Neutrophil # 8.12 X10^3/uL (2.7-7.7); Neutrophil % 76.4 % (47-70); Platelet Count 331 K/mm3 (150-450); RBC Distribution Width CV 15.9 % (11.6-14.6); RBC Distribution Width SD 44.2 fl (35.1-43.9); Red Blood Count 3.54 M/mm3 (4.2-5.4); White Blood Count 10.6 K/mm3 (4.4-11.0)
[2023-05-21 01:21] LABS: Prothrombin Time (Protime)PT. 12.8 SECONDS (11.7-14.9)
[2023-05-21 01:22] LABS: Partial Thromboplast Time 24.8 Seconds (24.1-36.2)
[2023-05-21 01:27] LABS: Fibrinogen 450 mg/dl (203-444)
[2023-05-21 01:32] LABS: ROM Internal Control Test YES-OK TO RESULT pt. (Internal QC); ROM Patient Test Negative (Negative); Record Kit Lot#, ROM+ K1374
[2023-05-21] MEDS: cycloBENZAPRine HCl 10 MG Tablet PO (02:47)
[2023-05-21] MEDS: 0.9% Saline Lock 10 ML Syringe IV (02:47)
[2023-05-21] MEDS: 0.9% NaCl IVPB Med Flush (250 mL) 15 ML IV (03:26)
[2023-05-21 08:29] LABS: Hematocrit 25.9 % (37-47); Hemoglobin 7.9 g/dL (12.0-15.0); Mean Corp Hgb Conc 30.5 g/dL (32-36); Mean Corpuscular Hgb 23.6 pg (27.0-32.0); Mean Corpuscular Volume 77.3 fL (81-99); Mean Platelet Vol. 8.6 fl (6.2-12.0); Platelet Count 293 K/mm3 (150-450); RBC Distribution Width CV 16.1 % (11.6-14.6); RBC Distribution Width SD 45.1 fl (35.1-43.9); Red Blood Count 3.35 M/mm3 (4.2-5.4); White Blood Count 9.2 K/mm3 (4.4-11.0)
[2023-05-21 08:57] LABS: International Normalized Ratio 1.1; Prothrombin Time (Protime)PT. 13.8 SECONDS (11.7-14.9)
[2023-05-21 08:59] LABS: Partial Thromboplast Time 28.5 Seconds (24.1-36.2)
[2023-05-21 09:03] LABS: Fibrinogen 395 mg/dl (203-444)
--- NOTE | 2023-05-21 09:19 | US_ITS ---
STUDY: SECOND AND THIRD TRIMESTER OBSTETRICAL ULTRASOUND - LIMITED REASON FOR EXAM: Female, 22 years old possible placental abruption PRIOR ULTRASOUND: Comparison is made with prior study dated May 21, 2023. TECHNIQUE: Transabdominal TECHNICAL QUALITY: Adequate. FINDINGS: There is a single intrauterine fetus. The fetus is in an transverse lie with the head on the maternal left side. There is demonstrated cardiac activity with a heart rate of 140 bpm. There is a normal amniotic fluid volume. The largest amniotic fluid pocket measures 3.1 cm. The amniotic fluid index (LG) is within normal limits. The placenta is posterior in location and is not low lying. There are Grade 0 placental changes. The cervix measures 3.3 cm in length. BIOMETRY: Age by LMP: 19 weeks, 4 days. BOOGIE by LMP: October 11, 2023. age by prior US: 19 weeks, 4 days. BOOGIE by prior US: October 11, 2023. US/OB Limited (No Biometrics) IMPRESSION: No evidence of placental abruption. Electronically Signed: Fransico Zaragoza MD at 10:47 EDT ,
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
== END 2023-05-21 12:00 | disposition short-term general hospital (02) ==
LOC: WPOUT 00:20 → WP 00:21
PROVIDERS: Referring Provider Obstetrics & Gynecology; Visit Provider Obstetrics & Gynecology
DX: O99.891 Other specified diseases and conditions complicating pregnancy (principal); D68.61 Antiphospholipid syndrome; R10.2 Pelvic and perineal pain; Z3A.19 19 weeks gestation of pregnancy; W10.8XXA Fall (on) (from) other stairs and steps, initial encounter; O99.012 Anemia complicating pregnancy, second trimester; O23.42 Unspecified infection of urinary tract in pregnancy, second trimester; O99.112 Other diseases of the blood and blood-forming organs and certain disorders involving the immune mechanism complicating pregnancy, second trimester; O34.219 Maternal care for unspecified type scar from previous cesarean delivery; O99.342 Other mental disorders complicating pregnancy, second trimester; F41.9 Anxiety disorder, unspecified
CPT/HCPCS: 96365; 59050; 76815; 84112; 85025; 85027; 85384; 85610; 85730; J1756; J7050; A4216

== ENCOUNTER 2023-05-27 13:25 | Outpatient (CLI) | payer MEDICAID, SELFPAY ==
[2023-05-27 13:43] VITALS: BP 108/58; PULSE 90; TEMP 36.8
[2023-05-27 13:44] VITALS: PULSE 95; O2SAT 100
[2023-05-27 14:04] VITALS: BMI 23.4
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
== END 2023-05-28 02:23 | disposition home or self-care (01) ==
LOC: WPOUT 13:30 → WP 13:31
PROVIDERS: Referring Provider Obstetrics & Gynecology; Visit Provider Obstetrics & Gynecology
DX: O46.92 Antepartum hemorrhage, unspecified, second trimester (principal); D68.61 Antiphospholipid syndrome; Z3A.21 21 weeks gestation of pregnancy; O98.312 Other infections with a predominantly sexual mode of transmission complicating pregnancy, second trimester; A74.9 Chlamydial infection, unspecified; O99.012 Anemia complicating pregnancy, second trimester; O23.42 Unspecified infection of urinary tract in pregnancy, second trimester; O99.282 Endocrine, nutritional and metabolic diseases complicating pregnancy, second trimester; E03.9 Hypothyroidism, unspecified; O99.112 Other diseases of the blood and blood-forming organs and certain disorders involving the immune mechanism complicating pregnancy, second trimester; O99.342 Other mental disorders complicating pregnancy, second trimester; F41.9 Anxiety disorder, unspecified; Z79.899 Other long term (current) drug therapy; O34.219 Maternal care for unspecified type scar from previous cesarean delivery
CPT/HCPCS: 59025; 59050

== ENCOUNTER 2023-06-05 14:35 | Outpatient (CLI) | payer MEDICAID, SELFPAY ==
[2023-06-05 15:05] VITALS: BP 115/57; PULSE 96; TEMP 36.9; O2SAT 98
[2023-06-05 15:23] VITALS: BMI 23.5
[2023-06-05] MEDS: Lactated Ringers 1,000 ML 999 ML IV (15:35)
[2023-06-05 16:03] LABS: Hemoglobin 9.2 g/dL (12.0-15.0); Mean Corp Hgb Conc 30.7 g/dL (32-36); Mean Corpuscular Volume 84.7 fL (81-99); Mean Platelet Vol. 9.1 fl (6.2-12.0); POSITIVE MORPHOLOGY YES; Platelet Count 311 K/mm3 (150-450); RBC Distribution Width CV 23.7 % (11.6-14.6); RBC Distribution Width SD 69.4 fl (35.1-43.9); Red Blood Count 3.54 M/mm3 (4.2-5.4); White Blood Count 9.3 K/mm3 (4.4-11.0)
[2023-06-05 16:10] LABS: Prothrombin Time (Protime)PT. 13.2 SECONDS (11.7-14.9); Scan Indicated on CBC? Y/N YES- FLAGS NOTED
[2023-06-05 16:11] LABS: Partial Thromboplast Time 26.6 Seconds (24.1-36.2)
[2023-06-05 16:32] LABS: Differential Comment SCANNED
--- NOTE | 2023-06-05 16:35 | OB.TRI.PN ---
Progress Notes Date of Service: 06/05/23 Progress Note: patient evaluated for vaginal bleeding, seen in office today and then went home and called in saying that she had fallen down the stairs and was having vaginal bleeding and abdominal cramping. Upon evaluation cervix was closed and there is no visible blood in the vaginal vault. Ultrasound performed and placenta within normal limits and cervix long closed and thick. No contractions seen on the monitor. Labs improved or stable. Patient clinically stable reviewed case with MFM and recommend discharge Laboratory Studies: Laboratory Tests 06/05/23 Range/Units 15:35 WBC 9.3 (4.4-11.0) K/mm3 RBC 3.54 L (4.2-5.4) M/mm3 Hgb 9.2 L (12.0-15.0) g/dL Hct 30.0 L (37-47) % MCV 84.7 (81-99) fL MCH 26.0 L (27.0-32.0) pg MCHC 30.7 L (32-36) g/dL RDW Std Deviation 69.4 H (35.1-43.9) fl RDW Coeff of Abner 23.7 H (11.6-14.6) % Plt Count 311 (150-450) K/mm3 MPV 9.1 (6.2-12.0) fl Differential Comment SCANNED PT 13.2 (11.7-14.9) SECONDS INR 1.0 APTT 26.6 (24.1-36.2) Seconds
[2023-06-05] MEDS: 0.9% Saline Lock 10 ML Syringe IV (16:36)
--- NOTE | 2023-06-05 16:37 | US_ITS ---
STUDY: SECOND AND THIRD TRIMESTER OBSTETRICAL ULTRASOUND - LIMITED REASON FOR EXAM: Female, 22 years old evaluate placenta LMP: PRIOR ULTRASOUND: 05/21/2023. TECHNIQUE: Transabdominal TECHNICAL QUALITY: Adequate. FINDINGS: There is a single intrauterine fetus. The fetus is in a breech presentation. There is demonstrated cardiac activity with a heart rate of 144 bpm. There is a normal amniotic fluid volume. The largest amniotic fluid pocket measures 4.6 cm. The placenta is posterior in location and is not low lying. No placenta previa or abruption. Numerous scattered placental lakes are suggested. There are Grade 1 placental changes. The cervix measures 8.5 cm cm in length. Age by LMP: 21 weeks, 5 days. BOOGIE by LMP: 10/11/2023. US/OB Limited (No Biometrics) IMPRESSION: Single live intrauterine gestation in vertex presentation with clinical EGA of 21 weeks 5 days. No acute abnormality of the placenta. Electronically Signed: Jose Kilgore MD at 21:08 EDT ,
--- NOTE | 2023-06-05 16:37 | CASEMGMT ---
Social Work Labor and Delivery Unit ? Summary:?Sw informed by bedside RN that mother of baby ([facility] Eng) has been readmitted today due to bleeding which MOB reports is result of a fall. - Sw presented to bedside. Reintroduced self to MOB and father of baby who is also at bedside. MOB informed sw that also visiting is FOB's aunt. Sw asked if it is ok for sw to discuss things with visitors present, MOB said yes. - Sw asked MOB what happened today that led her to be readmitted. - MOB stated that she went to a doctors appointment where she was bleeding. MOB went home from that doctors appointment, states that she got dizzy and fell down the steps. MOB stated that she called back her OBGYN (Charity) who told MOB she needed to come back to the hospital. - Sw asked MOB who is providing care to her other children at this time. MOB stated that her grandma is watching them. - MOB stated that she is in a lot of pain. When asked what specifically hurt she said everything. Sw asked MOB how long she was admitted at [facility] following her last admission here. MOB said that she was monitored for 6 days at [facility] before being discharged. MOB said that she was eventually sent home and just recently started to bleed again. - When asked how she is feeling mentally and emotionally MOB said she is really scared. - Sw provided ongoing support. Sw assessed for any other needs or concerns at this time. MOB denied. ? Assessment:??MOB laying in bed, states that she does not know if she is still bleeding or not. FOB and aunt sitting on couch. MOB states that she is scared something is going to happen to the baby. Sw attempted to provide reassurance and encouraged MOB to take deep breaths and talk to her supports that are present with her. ? Intervention:?Sw provided support/ empathy, education and active listening ? Plan:??Sw available to provide ongoing support as necessary. Juan Francisco Awad, HEAVY EQUIPMENT DIESEL MECHANIC, SUPERVISOR INSTRUMENT REPAIR
[2023-06-05] MEDS: Acetaminophen 500 MG Tablet 1000 MG PO (16:52)
[2023-06-05 18:49] VITALS: BP 110/53; PULSE 80; TEMP 37.2; O2SAT 100; O2SAT 98
[2023-06-05 19:52] VITALS: BP 104/56; TEMP 36.9
[2023-06-05 19:53] VITALS: PULSE 76; O2SAT 99
[2023-06-09 07:12] LABS: Kleihauer-Betke Negative
== END 2023-06-05 21:28 | disposition home or self-care (01) ==
LOC: WPOUT 14:39 → WP 14:40
PROVIDERS: Obstetrics & Gynecology; Referring Provider Advanced Practice Midwife; Visit Provider Advanced Practice Midwife
DX: O46.90 Antepartum hemorrhage, unspecified, unspecified trimester (principal); O33.1 Maternal care for disproportion due to generally contracted pelvis
CPT/HCPCS: 96360; 36415; 59025; 59050; 76815; 76817; 85027; 85460; 85610; 85730; 86850; 86900; 86901; 99221; J7120; A4216; G0378

== ENCOUNTER → 2023-09-02 | Outpatient (CLI) | payer MEDICAID, SELFPAY ==
--- NOTE | 2023-09-02 12:29 | US_ITS ---
STUDY: ULTRASOUND OF THE FEMALE PELVIS - LIMITED REASON FOR EXAM: Female, 23 years old pelvic pain -- POST 2 MONTHS -- LMP 08/07/23 TECHNIQUE: Transabdominal and Transvaginal TECHNICAL QUALITY: Adequate. COMPARISON: None. FINDINGS: The uterus is retroverted and is in a midline position. The uterus measures 8.9 x 6.3 x 5.8 cm. Normal uterine cervix. The endometrium measures 12-16 mm in thickness, and is hyperechoic. There is no demonstrated endometrial mass. There is no demonstrated myometrial mass. The right ovary measures 4.0 x 4.7 x 3.1 cm. Within the right ovary there is a round structure measuring 2.8 x 3.2 x 2.9 cm with diffuse homogeneous echoes with wide differential diagnosis including endometrioma, hemorrhagic cyst or atypical collapsing corpus luteum cyst. A complex cystic mass not excluded. There is normal arterial and normal venous vascularity. The left ovary measures 3.5 x 2.4 x 1.8 cm. Within the left ovary there is a round anechoic structure measuring 2.8 x 1.5 x 2.8 cm consistent with a simple cyst. There is no visualized left adnexal mass or complex lesion. There is normal arterial and normal venous vascularity. There is no fluid in the cul-de-sac. The urinary bladder volume is 114.2 cc. US/Pelvic (Non ) IMPRESSION: Complex cyst within the right ovary with wide differential diagnosis including hemorrhagic cyst, endometrioma, collapsing corpus luteum cyst with infectious process or neoplasm not entirely excluded. Recommend follow-up with ultrasound in 4-6 weeks, different phase of menstrual cycle to evaluate resolution. Nonspecific simple cyst within the left ovary measuring 2.4 cm. Remainder of the exam unremarkable. Electronically Signed: Shira Cabezas MD at 17:22 EDT ,
--- NOTE | 2023-09-02 12:29 | US_ITS ---
STUDY: ULTRASOUND OF THE FEMALE PELVIS - LIMITED REASON FOR EXAM: Female, 23 years old pelvic pain -- POST 2 MONTHS -- LMP 08/07/23 TECHNIQUE: Transabdominal and Transvaginal TECHNICAL QUALITY: Adequate. COMPARISON: None. FINDINGS: The uterus is retroverted and is in a midline position. The uterus measures 8.9 x 6.3 x 5.8 cm. Normal uterine cervix. The endometrium measures 12-16 mm in thickness, and is hyperechoic. There is no demonstrated endometrial mass. There is no demonstrated myometrial mass. The right ovary measures 4.0 x 4.7 x 3.1 cm. Within the right ovary there is a round structure measuring 2.8 x 3.2 x 2.9 cm with diffuse homogeneous echoes with wide differential diagnosis including endometrioma, hemorrhagic cyst or atypical collapsing corpus luteum cyst. A complex cystic mass not excluded. There is normal arterial and normal venous vascularity. The left ovary measures 3.5 x 2.4 x 1.8 cm. Within the left ovary there is a round anechoic structure measuring 2.8 x 1.5 x 2.8 cm consistent with a simple cyst. There is no visualized left adnexal mass or complex lesion. There is normal arterial and normal venous vascularity. There is no fluid in the cul-de-sac. The urinary bladder volume is 114.2 cc. US/Transvaginal Non- IMPRESSION: Complex cyst within the right ovary with wide differential diagnosis including hemorrhagic cyst, endometrioma, collapsing corpus luteum cyst with infectious process or neoplasm not entirely excluded. Recommend follow-up with ultrasound in 4-6 weeks, different phase of menstrual cycle to evaluate resolution. Nonspecific simple cyst within the left ovary measuring 2.4 cm. Remainder of the exam unremarkable. Electronically Signed: Shira Cabezas MD at 17:22 EDT ,
== END | disposition home or self-care (01) ==
LOC: US 12:29
PROVIDERS: Referring Provider Obstetrics & Gynecology; Visit Provider Obstetrics & Gynecology
DX: R10.2 Pelvic and perineal pain (principal)
CPT/HCPCS: 76830; 76856; 93976

== ENCOUNTER → 2024-01-25 | Outpatient (CLI) | payer MEDICAID, SELFPAY ==
[2024-01-25 15:06] LABS: Absolute Lymphocyte Count 2.21 X10^3/uL (0.83-4.51); Absolute Neutrophil Count 5.5 X10^3/uL (2.0-7.7); Basophil# 0.03 X10^3/uL; Basophil% 0.4 % (0-1); Eosinophil# 0.15 X10^3/uL; Eosinophils% 1.8 % (0-5); Hematocrit 35.9 % (37-47); Hemoglobin 10.8 g/dL (12.0-15.0); Lymphocyte # 2.21 X10^3/ul (0.83-4.51); Lymphocyte % 26.2 % (19-41); Mean Corp Hgb Conc 30.1 g/dL (32-36); Mean Corpuscular Hgb 23.9 pg (27.0-32.0); Mean Corpuscular Volume 79.4 fL (81-99); Mean Platelet Vol. 9.5 fl (6.2-12.0); Monocyte# 0.49 X10^3/uL; Monocyte% 5.8 % (0-10); NRBC Flagged by Analyzer 0 % (0-5); Neutrophil # 5.54 X10^3/uL (2.7-7.7); Neutrophil % 65.4 % (47-70); Platelet Count 344 K/mm3 (150-450); RBC Distribution Width CV 13.3 % (11.6-14.6); Red Blood Count 4.52 M/mm3 (4.2-5.4); White Blood Count 8.5 K/mm3 (4.4-11.0)
[2024-01-25 15:40] LABS: Ferritin 5 ng/mL (8-252); Iron Binding Capacity,Total 420 ug/dL (250-450); T4 Free Direct 0.71 ng/dL (0.76-1.46); Thyroid Stim Hormone (TSH) 4.46 uIU/mL (0.358-3.74)
[2024-01-27 05:07] LABS: Transferrin 319 mg/dL (192-364)
== END | disposition home or self-care (01) ==
LOC: BIMLAB 13:50
PROVIDERS: Registered Nurse; Visit Provider Obstetrics & Gynecology
DX: N92.0 Excessive and frequent menstruation with regular cycle (principal); R10.31 Right lower quadrant pain; D64.9 Anemia, unspecified; E03.9 Hypothyroidism, unspecified
CPT/HCPCS: 36415; 82728; 83550; 84439; 84443; 84466; 85025

== ENCOUNTER → 2024-01-28 | Outpatient (CLI) | payer MEDICAID, SELFPAY ==
--- NOTE | 2024-01-28 14:46 | US_ITS ---
INDICATION: menorrhagia and RLQ pain EXAMINATION: Ultrasound US Pelvis Non OB Complete With Transvaginal Imaging TECHNIQUE: Transabdominal and transvaginal pelvic ultrasound was performed. Grayscale, spectral waveform, and color flow Doppler evaluation of the adnexa. COMPARISON: Prior study dated: 09/02/2023 FINDINGS: UTERUS: Anteverted. The uterus measures 9.7 x 6.9 x 5.5 cm. No focal lesion is seen. There is increased vascularity of the uterus. The endometrial stripe measures 14 mm in AP diameter which is borderline in thickness. There is mild fluid within the endometrial cavity. RIGHT OVARY: The right ovary measures 2.8 x 1.9 x 1.7 cm. Non-enlarged, normal echogenicity. There is normal arterial inflow and venous outflow present in the right ovary. LEFT OVARY: The left ovary measures 2.6 x 1.6 x 1.6 cm. Non-enlarged, normal echogenicity. There is normal arterial inflow and venous outflow present in the left ovary. FREE FLUID: None. US/Pelvic w/ Transvaginal IMPRESSION: 1. Borderline thickening of the endometrium with nonspecific mild fluid within the endometrial cavity. Follow-up examination after one or 2 menstrual cycles might be of further value. 2. Otherwise unremarkable examination. Electronically Signed: Joselito Delacruz MD at 13:15 EST ,
== END | disposition home or self-care (01) ==
LOC: US 14:45
PROVIDERS: Referring Provider Obstetrics & Gynecology; Visit Provider Obstetrics & Gynecology
DX: N92.0 Excessive and frequent menstruation with regular cycle (principal); R10.31 Right lower quadrant pain
CPT/HCPCS: 76830; 76856

== ENCOUNTER → 2024-08-16 | Outpatient (CLI) | payer MEDICAID, SELFPAY ==
[2024-08-16 12:32] LABS: Absolute Lymphocyte Count 1.79 X10^3/uL (0.83-4.51); Absolute Neutrophil Count 4.4 X10^3/uL (2.0-7.7); Basophil# 0.02 X10^3/uL; Basophil% 0.3 % (0-1); Eosinophil# 0.18 X10^3/uL; Eosinophils% 2.7 % (0-5); Hematocrit 35.7 % (37-47); Hemoglobin 10.5 g/dL (12.0-15.0); Lymphocyte # 1.79 X10^3/ul (0.83-4.51); Lymphocyte % 26.4 % (19-41); Mean Corp Hgb Conc 29.4 g/dL (32-36); Mean Corpuscular Hgb 21.8 pg (27.0-32.0); Mean Corpuscular Volume 74.2 fL (81-99); Mean Platelet Vol. 9.7 fl (6.2-12.0); Monocyte# 0.37 X10^3/uL; Monocyte% 5.4 % (0-10); NRBC Flagged by Analyzer 0 % (0-5); Neutrophil # 4.41 X10^3/uL (2.7-7.7); Neutrophil % 64.9 % (47-70); Platelet Count 406 K/mm3 (150-450); RBC Distribution Width CV 15.9 % (11.6-14.6); RBC Distribution Width SD 42.5 fl (35.1-43.9); Red Blood Count 4.81 M/mm3 (4.2-5.4); White Blood Count 6.8 K/mm3 (4.4-11.0)
[2024-08-16 13:28] LABS: AST(SGOT) 17 U/L (15-37); Alanine Aminotransfer ALT/SGPT 17 U/L (13-56); Alkaline Phosphatase 89 U/L (45-117); Anion Gap 5 (5-15); BUN 16 mg/dL (7-18); BUN/Creat Ratio 20.8 RATIO (10-20); Calcium,Total 9.5 mg/dL (8.5-10.1); Chloride 106 mmol/L (98-107); Creatinine, Serum 0.77 mg/dL (0.55-1.02); EST Glomerular Filtration Rate 99 mL/min (>60); Est Glom Filt Rate - Afr Amer 120 mL/min (>60); Ferritin 3 ng/mL (8-252); Globulin 4.1 g/dL (2.2-4.2); Glucose 93 mg/dL (74-106); Iron 25 ug/dL (50-170); Iron Binding Capacity,Total 454 ug/dL (250-450); Potassium 3.6 mmol/L (3.5-5.1); Protein, Total 8.1 g/dL (6.4-8.2); Sodium Level 138 mmol/L (136-145)
[2024-08-17 14:10] LABS: Thyroglobulin Antibody 10.4 IU/mL (0.0-0.9); Thyroid Peroxidase AB > 600 IU/mL (0-34)
== END | disposition home or self-care (01) ==
LOC: BIMLAB 10:56
PROVIDERS: Visit Provider Nurse Practitioner
DX: E03.9 Hypothyroidism, unspecified (principal); Z86.39 Personal history of other endocrine, nutritional and metabolic disease; D64.9 Anemia, unspecified
CPT/HCPCS: 36415; 80053; 82728; 83540; 83550; 84439; 84443; 85025; 86376; 86800

== ENCOUNTER → 2024-08-17 | Outpatient (CLI) | payer MEDICAID, SELFPAY ==
[2024-08-17 12:32] LABS: International Normalized Ratio 1.1; Partial Thromboplast Time 27.1 Seconds (24.1-36.2); Prothrombin Time (Protime)PT. 13.9 SECONDS (11.7-14.9)
[2024-08-21 18:07] LABS: Dilute Prothrombin Time (dPT) 40.9 sec (0.0-47.6); Factor VIII Activity 121 % (56-140); Interpretation Comment: (.); dPT Confirm Ratio 1.14 Ratio (0.00-1.34)
== END | disposition home or self-care (01) ==
LOC: BIMLAB 11:15
PROVIDERS: PCP Internal Medicine; Referring Provider Nurse Practitioner; Visit Provider Nurse Practitioner
DX: N92.0 Excessive and frequent menstruation with regular cycle (principal); D50.8 Other iron deficiency anemias; D68.61 Antiphospholipid syndrome
CPT/HCPCS: 36415; 85240; 85245; 85610; 85730

== ENCOUNTER → 2024-10-03 | Outpatient (CLI) | payer MEDICAID, SELFPAY ==
[2024-10-03 12:21] LABS: Absolute Lymphocyte Count 2.71 X10^3/uL (0.83-4.51); Absolute Neutrophil Count 4.6 X10^3/uL (2.0-7.7); Basophil# 0.06 X10^3/uL; Basophil% 0.7 % (0-1); Eosinophil# 0.34 X10^3/uL; Eosinophils% 4.1 % (0-5); Hematocrit 33.1 % (37-47); Hemoglobin 9.8 g/dL (12.0-15.0); Lymphocyte # 2.71 X10^3/ul (0.83-4.51); Lymphocyte % 32.9 % (19-41); Mean Corp Hgb Conc 29.6 g/dL (32-36); Mean Corpuscular Hgb 22.4 pg (27.0-32.0); Mean Corpuscular Volume 75.7 fL (81-99); Mean Platelet Vol. 9.3 fl (6.2-12.0); Monocyte# 0.46 X10^3/uL; Monocyte% 5.6 % (0-10); NRBC Flagged by Analyzer 0 % (0-5); Neutrophil # 4.63 X10^3/uL (2.7-7.7); Neutrophil % 56.3 % (47-70); Platelet Count 421 K/mm3 (150-450); RBC Distribution Width SD 47.3 fl (35.1-43.9); Red Blood Count 4.37 M/mm3 (4.2-5.4); White Blood Count 8.2 K/mm3 (4.4-11.0)
[2024-10-03 12:48] LABS: Vitamin D,25 Hydroxy 26.6 ng/mL
[2024-10-03 12:53] LABS: Ferritin 5 ng/mL (8-252); Iron 22 ug/dL (50-170); Iron Binding Capacity,Total 418 ug/dL (250-450); PERCENT IRON SATURATION 5.3 % (15.0-55.0)
== END | disposition home or self-care (01) ==
LOC: BIMLAB 11:11
PROVIDERS: PCP Internal Medicine; Referring Provider Internal Medicine; Visit Provider Internal Medicine
DX: D64.9 Anemia, unspecified (principal); E03.9 Hypothyroidism, unspecified
CPT/HCPCS: 36415; 82306; 82728; 83540; 83550; 84443; 85025

== ENCOUNTER → 2024-10-24 | Outpatient (CLI) | payer MEDICAID, SELFPAY ==
--- NOTE | 2024-10-24 11:54 | EMB_PTH ---
PATIENT: NELLA WHITE LOC: [facility] U#:[id number] AGE/SX: 24/F ROOM: RE10/24/[address]: Dr. Randi Ordonez DO : 2000 BED: DIS: 10/24/2024 SPEC #: [id number] RECD: 10/24/24 12:13 STATUS: DAVID CLAROSXavi #: [id number] ZOE: 10/24/24 11:[address]: Randi Ordonez DEPT: SURGICAL PATHOLOGY RECD BY: Arben Saini ENTERED: 10/24/24 12:22 SP TYPE: ENDOM BX/C ADA DR: Dr. Gail Banuelos MD Tissues: Endometrium, NOS Procedures: Surgery Specimen Level IV HEADER OPERATION: Endometrial biopsy PRE-OP DIAGNOSIS: Menorrhagia TISSUE SUBMITTED: Endometrial lining MICROSCOPIC DIAGNOSIS Endometrium, biopsy: Secratory endometrium. AM. 10/25/2024 MICROSCOPIC DESCRIPTION Slides are reviewed. GROSS DESCRIPTION Received is one container labeled with the patient's name and not further designated. The specimen consists of multiple irregular fragments of light cao-yellow soft tissue that in aggregate measure 2.2 x 0.7 x 0.1 cm. The specimen is totally submitted in one cassette. AM. 10/24/2024 TC:5 CPT:62055
== END | disposition home or self-care (01) ==
LOC: LABSPEC 11:57
PROVIDERS: PCP Internal Medicine; Referring Provider Obstetrics & Gynecology; Visit Provider Obstetrics & Gynecology
DX: N93.9 Abnormal uterine and vaginal bleeding, unspecified (principal)
CPT/HCPCS: 88305

== ENCOUNTER → 2024-11-11 | Outpatient (CLI) | payer MEDICAID, SELFPAY | END | disposition home or self-care (01) | LOC: BIMLAB 11:35 | PROVIDERS: PCP Internal Medicine; Referring Provider Obstetrics & Gynecology; Visit Provider Obstetrics & Gynecology | DX: E06.3 Autoimmune thyroiditis (principal) | CPT/HCPCS: 36415; 84443 ==

== ENCOUNTER → 2024-12-21 | Outpatient (CLI) | payer MEDICAID, SELFPAY | END | disposition home or self-care (01) | LOC: BWCLAB 08:37 | PROVIDERS: PCP Internal Medicine; Referring Provider Obstetrics & Gynecology; Visit Provider Obstetrics & Gynecology | DX: Z01.818 Encounter for other preprocedural examination (principal) ==

== ENCOUNTER 2025-01-03 05:38 | Day surgery (SDC) | payer MEDICAID, SELFPAY ==
[2024-12-21 11:13] LABS: Hematocrit 32.9 % (37-47); Hemoglobin 9.7 g/dL (12.0-15.0); Mean Corp Hgb Conc 29.5 g/dL (32-36); Mean Corpuscular Hgb 21.3 pg (27.0-32.0); Mean Corpuscular Volume 72.3 fL (81-99); Mean Platelet Vol. 9.5 fl (6.2-12.0); Platelet Count 396 K/mm3 (150-450); RBC Distribution Width CV 17.1 % (11.6-14.6); Red Blood Count 4.55 M/mm3 (4.2-5.4); White Blood Count 6.1 K/mm3 (4.4-11.0)
[2024-12-21 11:21] LABS: Partial Thromboplast Time 25.6 Seconds (24.1-36.2); Prothrombin Time (Protime)PT. 13.5 SECONDS (11.7-14.9)
[2024-12-21 11:34] LABS: AST(SGOT) 14 U/L (15-37); Alanine Aminotransfer ALT/SGPT 20 U/L (13-56); Albumin, Serum 3.9 g/dL (3.2-5.0); Alkaline Phosphatase 79 U/L (45-117); Protein, Total 7.9 g/dL (6.4-8.2)
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
[2025-01-03] VITALS (12 sets, daily range): BP systolic 110–119; BP diastolic 42–83; PULSE 75–87; RESP 14–17; TEMP 36.2–37.3; O2SAT 100; BMI 25.9
--- NOTE | 2025-01-03 | HYST_PTH ---
PATIENT: NELLA WHITE [place] [facility] [place] U#:[id number] AGE/SX: 24/F ROOM: RE01/03/[address]: Dr. Randi Ordonez DO : 2000 BED: DIS: 01/03/2025 SPEC #: [id number] RECD: 01/03/25 12:59 STATUS: DAVID JONES #: [id number] ZOE: 01/03/25 00:[address]: Randi Ordonez DEPT: SURGICAL PATHOLOGY RECD BY: Junito Paulino ENTERED: 01/03/25 12:59 SP TYPE: HYSTERECT OTHR DR: Dr. Gail Banuelos MD Tissues: Uterus, NOS Procedures: Surgery Specimen Level V HEADER OPERATION: Laparoscopic hysterectomy, cystoscopy PRE-OP DIAGNOSIS: Menorrhagia, antiphospholipid antibody syndrome TISSUE SUBMITTED: Cervix, uterus MICROSCOPIC DIAGNOSIS Uterus and cervix, hysterectomy: Cervix - Mild chronic inflammation. Endometrium - Proliferative endometrium. Myometrium - No pathologic diagnosis. MIKAYLA. 01/04/2025 MICROSCOPIC DESCRIPTION Slides are reviewed. GROSS DESCRIPTION Received in fixative is one container labeled with the patient's name and designated uterus, cervix. The specimen consists of a hysterectomy specimen consisting of uterus with cervix. The uterus with cervix weighs 103 gm and measures 9 x 7 x 4.5 cm. The serosal surface is cao glistening. The ectocervical mucosa is unremarkable. The external os is oval in contour. The endocervical canal measures 3.5 cm in length and the endocervical mucosa is cao glistening and unremarkable. The triangular endometrial cavity measures 5 cm in length and up to 4 cm in width. The endometrium is cao, glistening without any mass lesions and measures 0.5 cm in thickness. Sections of the uterine wall do not reveal any mass lesions and measures 2cm in thickness. Principal Bioinformatics Specialist sections are submitted in 6 cassettes as follows: 1 - anterior cervix, 2 - posterior cervix, 3 & 4 - anterior uterine wall, 5 & 6 - posterior uterine wall. MIKAYLA: 01/03/2025 TC:3 CPT: 01284
[2025-01-03 06:15] LABS: Internal QC Validated? YES +Cl - CLEAR BKGD; Pregnancy, Urine Negative Negative
[2025-01-03] MEDS: Celecoxib 200 MG Capsule 400 MG PO (06:37)
[2025-01-03] MEDS: Acetaminophen 500 MG Tablet 1000 MG PO (06:37)
[2025-01-03] MEDS: Phenazopyridine 95 MG Tablet 190 MG PO (06:37)
[2025-01-03] MEDS: Scopolamine 1mg/72hr Patch 1 PATCH TD (06:38)
[2025-01-03] MEDS: Gabapentin 600 MG Tablet PO (06:38)
[2025-01-03] MEDS: Lactated Ringers 1,000 ML 40 ML IV (06:48)
[2025-01-03] MEDS: Magnesium 1 GM over 15 mins IV (06:48)
[2025-01-03 07:15] LABS: Bedside Glucose 85 mg/dL (74-106)
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
--- NOTE | 2025-01-03 07:47 | PCM.DC ---
Discharge Instructions Diet Discharge Diet: No restrictions DC O2, CPAP, BIPAP needs Home O2 Discharge instructions: No Dressing / Incision Discharge Activity: May Shower May resume sexual activity in: 8 weeks Weight Bearing Status: Full weight bearing Lifting Restrictions: 10 pounds for 2 weeks Dressing / Incision Call your doctor if your incision/area has: Continuous Slow Oozing, Sudden Increased Bleeding, Increased Pain/ Swelling, Increased Redness and Foul Smelling Discharge Call your doctor if you observe: Fever of 101 or Higher, Using more than 1 pad per hour, Shortness of breath, Chest pain and Uncontrolled pain Suture Line Care: Avoid Pulling/Pushing and Avoid Pinching/Bending Remove Dressing in: 1 week (if present) Cleanse incision/area with: Soap & Water and Keep Dressing Clean & Dry Follow Up Care Please Follow Up With: Randi Ordonez DO When: Call to make an appointment with your doctor for a postop visit in 2 and 6 weeks Test Results: Test results from this visit will be discussed in further detail at your follow-up appointment, if applicable. Discharge Plan Admission Primary Reason for Your Visit: hysterectomy Attending Provider: Randi Ordonez Primary Care Provider: Gail Banuelos Instructions Print Language: [place] Discharge Orders/Prescriptions Prescriptions: New ibuprofen 800 mg tablet 800 mg PO Q8H PRN (Reason: pain) Qty: 30 0RF oxycodone-acetaminophen [Percocet] 5-325 mg tablet 1 tab PO Q4H PRN (Reason: pain) 7 Days Qty: 20 0RF Rx Instructions: 1-2 tabs q 4 hrs as needed for pain Continued sertraline [Zoloft] 25 mg tablet 25 mg PO QDAY Qty: 60 0RF levothyroxine 125 mcg tablet 125 mcg PO QDAY Qty: 30 3RF ferrous sulfate 324 mg (65 mg iron) tablet,delayed release (DR/EC) 324 mg PO QDAY Qty: 30 5RF Referrals / Follow Up: Gail Banuelos MD [Primary Care Provider] - Disposition Disposition (needs filled in before D/C Order can be placed): Home, Self Care
--- NOTE | 2025-01-03 07:51 | PCM.DC ---
Discharge Instructions Diet Discharge Diet: No restrictions DC O2, CPAP, BIPAP needs Home O2 Discharge instructions: No Dressing / Incision May resume sexual activity in: 8 weeks Weight Bearing Status: Full weight bearing Dressing / Incision Call your doctor if your incision/area has: Continuous Slow Oozing, Sudden Increased Bleeding, Increased Pain/ Swelling, Increased Redness and Foul Smelling Discharge Call your doctor if you observe: Fever of 101 or Higher, Using more than 1 pad per hour, Shortness of breath, Chest pain and Uncontrolled pain Suture Line Care: Avoid Pulling/Pushing and Avoid Pinching/Bending Cleanse incision/area with: Soap & Water and Keep Dressing Clean & Dry Follow Up Care Please Follow Up With: Randi Ordonez DO Test Results: Test results from this visit will be discussed in further detail at your follow-up appointment, if applicable. Discharge Plan Admission Primary Reason for Your Visit: hysterectomy Attending Provider: Randi Ordonez Primary Care Provider: Gail Banuelos Instructions Print Language: Tristanian Discharge Orders/Prescriptions Prescriptions: New ibuprofen 800 mg tablet 800 mg PO Q8H PRN (Reason: pain) Qty: 30 0RF oxycodone-acetaminophen [Percocet] 5-325 mg tablet 1 tab PO Q4H PRN (Reason: pain) 7 Days Qty: 20 0RF Rx Instructions: 1-2 tabs q 4 hrs as needed for pain Continued sertraline [Zoloft] 25 mg tablet 25 mg PO QDAY Qty: 60 0RF levothyroxine 125 mcg tablet 125 mcg PO QDAY Qty: 30 3RF ferrous sulfate 324 mg (65 mg iron) tablet,delayed release (DR/EC) 324 mg PO QDAY Qty: 30 5RF Referrals / Follow Up: Gail Banuelos MD [Primary Care Provider] - Disposition Disposition (needs filled in before D/C Order can be placed): Home, Self Care
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
[2025-01-03] MEDS: Cefazolin 2 GM in Syringe 10 ML IV (07:59)
--- NOTE | 2025-01-03 09:25 | OP.PCM_ITS ---
Problems Associated Problem List Diagnoses (1) Menorrhagia: (2) Antiphospholipid antibody syndrome: Multi Select Codes Urinary/Genital Urinary/Genital CPT Codes: 89787 Cystoscopy and 27158 TLH <250gr uterus Operative Report (Standard) Operative Information Date of Procedure: 01/03/25 Pre-Operative Diagnosis: 24 y/o , menometrorrhagia, failed conservative therapy, history of multiple sections Post-Operative Diagnosis: 24 y/o , menometrorrhagia, failed conservative therapy, history of multiple sections Surgery/Procedure Performed: total robotic hysterectomy, cystoscopy handstitching machine collar feller: Yes Pattern Clerk: David Loya Tasks completed by office support assistant: Opening, Closing, Trocar and Retracting Additional commercial assistant?: No Type of Anesthesia: General RN Documented Start/Stop Times: Operation Date: 01/03/25 08:00 Case Time Into Pre-Op 01/03/25 06:01 Out of Pre-Op 01/03/25 07:55 Anesthesia Start 01/03/25 07:59 Into Room 01/03/25 07:59 Procedure Start 01/03/25 08:27 Procedure Start Time: 08:28 Procedure Stop Time: 09:33 Select all DRAINS/GRAFTS/IMPLANTS that apply: None Estimated Blood Loss: 30 cc Specimen collected: Yes Description of specimen(s) removed: uterus and cervix Description of surgery: Reason for surgery: This is a 24-year-old G 7, P 4 who presented to my office with history of heavy irregular periods. She tried multiple hormonal and nonhormonal therapies without success. Patient had her fallopian tubes removed after her last emergency section and was no longer interested in childbearing. Due to multiple failed treatments the decision was made to proceed with a hysterectomy. Due to her last 2 C-sections being emergent at 25 and 26 weeks the decision was made to use the robotic device for adhesiolysis. The risks benefits and alternatives were discussed with the patient the patient had a clear understanding of the procedure and a consent form was signed. Procedure: The patient was placed in the dorsal low lithotomy position and prepped and draped in the normal sterile fashion both abdominally and in the perineum. Her legs were placed in stirrups a Kincaid catheter was inserted into the urethra without difficulty. A weighted speculum was placed in the vagina and a single- tooth tenaculum was used to grasp the anterior lip of the cervix. An advincula uterine manipulator was inserted through the cervix without complication. It was then tied into place at the 2 and 10:00 locations on the cervix. Gloves were changed and attention was turned towards the abdomen. Approximately 23 cm above the pubic symphysis in the midline, and after Marcaine injection, a 8 mm incision was made. An 8 mm trocar was inserted through the laparoscope, then inserted into the abdomen under direct visualization using the laparoscope. Good abdominal placement was noted and no complications were appreciated. An air seal device was utilized to create pneumoperitoneum. At 12 cm lateral to the midline on the left and right sides 8 mm accessory ports were placed. Next a left upper quadrant 8 mm commercial assistant port site was placed. The patient was placed in steep Trendelenburg position. The robot was docked. The hysterectomy was initiated first by taking down the round ligament on each side using the vessel sealer device. The broad ligament was then and taken down using the vessel sealer device. Next the bladder flap was taken down without complication. This was done using monopolar cautery to the level of the cervical vaginal junction. After the bladder flap was created, uterine vessels were then isolated and cauterized using the vessel sealer device and EndoShears. At this point the uterine vessels were taken down further starting from the ascending branch, dissecting along the edges of the cervix to the level of the cervical vaginal junction with hemostasis appreciated. Scar tissue was carefully dissected off of the anterior uterine segment and bladder. The cervical vaginal junction was then using monopolar cautery in a circumferential pattern across the superior aspect of the cervix. The specimen was delivered through the vagina and sent to pathology. The remaining vaginal cuff was then closed using a V lock suture. This was performed in a running technique. Excellent hemostasis was obtained and good closure was noted. Irrigation was then performed. All operative sites were noted to be hemostatic. A cystoscopy was performed with a 70 degree cystoscope through the urethra into the bladder without complication. The bladder was instilled with approximately 250 cc of normal saline. Intraoperative images were made. Ureteral orifices and jets were identified. No suture material was appreciated in the bladder. The bladder was then drained and cystoscope was removed. The abdominal cavity was again examined using the laparoscope after the robot was undocked. All operative sites were noted to be hemostatic. The trochars were removed under direct visualization without complication and pneumoperitoneum was reduced. At this point the skin was then closed using 4-0 Monocryl subcuticular stitch and sealed with surgical glue. The patient tolerated the procedure well sponge lap and needle counts were correct x2 the patient was taken to the recovery room in stable condition. Surgical Findings: Moderate scar tissue at the utero cervical junction and bladder. Small fibroid on the uterus. Normal ovaries. Surgically absent fallopian tubes. Complications Complications: No Admit VTE Documentation VTE Present on Admission: No VTE Mechan Device Prophylaxis: SCD's VTE Pharm Prophylaxis ordered?: No
[2025-01-03] MEDS: Bupivacaine 0.25% 30 ML Vial (09:26)
--- NOTE | 2025-01-03 09:55 | PCM.POST.ANE ---
Anesthesia: Postop Eval I Current Vital Signs Temperature: 97.1 F Pulse Rate: 87 Blood Pressure: 113/42 Respiratory Rate: 15 Pulse Ox: 100 Oxygen Delivery Method: Room Air Assessment Airway patent: Yes Spontaneous unlabored respirations: Yes Mental status: Awake and Calm nausea: No Vomiting: No Anesthesia Complication: No Fluid Hydration Crystalloid volume administer (ml): 900 Total IV fluid infused: 900 Progress Note Anesthesia document: Postop Eval 1 completed: Yes
[2025-01-03] MEDS: Lactated Ringers @ 70 MLS/HR 70 ML IV (10:12)
[2025-01-03] MEDS: Ondansetron 4 MG/2 ML Vial IV (11:12)
[2025-01-03] MEDS: HYDROcodone Bitartrate/Apap 5/325 Tablet PO (12:06)
--- NOTE | 2025-01-03 13:11 | POSTOPAN2_ITS ---
Anesthesia Postop Eval I Sum Postop Eval Completion status Anesthesia document: Postop Eval 1 completed: Yes Anesthesia Postop Eval I Summary Anesthesia Postop Eval I Summary: Anesthesia Postop Eval I: Assessment Summary Airway patent Yes 01/03/25 09:56 SENIOR NETWORK ARCHITECT.APAT Spontaneous unlabored Yes 01/03/25 09:56 SENIOR NETWORK ARCHITECT.APAT respirations Mental status Awake,Calm 01/03/25 09:56 SENIOR NETWORK ARCHITECT.APAT nausea No 01/03/25 09:56 SENIOR NETWORK ARCHITECT.APAT Vomiting No 01/03/25 09:56 SENIOR NETWORK ARCHITECT.APAT Anesthesia Postop Eval I: Fluid Summary Crystalloid volume administer 900 01/03/25 09:56 SENIOR NETWORK ARCHITECT.APAT (ml) Colloids volume administered ( ml) Blood Product volume administered (ml) Total IV fluid infused 900 01/03/25 09:56 SENIOR NETWORK ARCHITECT.APAT Anesthesia Postop Eval I: Summary Notes Anesthesia Complication No 01/03/25 09:56 SENIOR NETWORK ARCHITECT.APAT Anesthesia Complication Comment: Post-operative progress note Anesthesia: Postop Eval II Evaluation Mental status: Awake and Calm Pain Level: 1 nausea: No Vomiting: No Complications Anesthesia Complication: No
--- NOTE | 2025-01-03 13:11 | PCM.POSTANE2 ---
Anesthesia Postop Eval I Sum Postop Eval Completion status Anesthesia document: Postop Eval 1 completed: Yes Anesthesia Postop Eval I Summary Anesthesia Postop Eval I Summary: Anesthesia Postop Eval I: Assessment Summary Airway patent Yes 01/03/25 09:56 RESIDENTIAL FRAMING CARPENTER.APAT Spontaneous unlabored Yes 01/03/25 09:56 RESIDENTIAL FRAMING CARPENTER.APAT respirations Mental status Awake,Calm 01/03/25 09:56 RESIDENTIAL FRAMING CARPENTER.APAT nausea No 01/03/25 09:56 RESIDENTIAL FRAMING CARPENTER.APAT Vomiting No 01/03/25 09:56 RESIDENTIAL FRAMING CARPENTER.APAT Anesthesia Postop Eval I: Fluid Summary Crystalloid volume administer 900 01/03/25 09:56 RESIDENTIAL FRAMING CARPENTER.APAT (ml) Colloids volume administered ( ml) Blood Product volume administered (ml) Total IV fluid infused 900 01/03/25 09:56 RESIDENTIAL FRAMING CARPENTER.APAT Anesthesia Postop Eval I: Summary Notes Anesthesia Complication No 01/03/25 09:56 RESIDENTIAL FRAMING CARPENTER.APAT Anesthesia Complication Comment: Post-operative progress note Anesthesia: Postop Eval II Evaluation Mental status: Awake and Calm Pain Level: 1 nausea: No Vomiting: No Complications Anesthesia Complication: No
== END 2025-01-03 12:43 | disposition home or self-care (01) ==
LOC: SDC 05:41 → AC 05:42
PROVIDERS: Anesthesiology; PCP Internal Medicine; Referring Provider Obstetrics & Gynecology; Visit Provider Obstetrics & Gynecology
PROC: 0UT94ZZ Resection of Uterus, Percutaneous Endoscopic Approach (ICD-10-PCS; CPT 58570; principal; 2025-01-03 07:40)
DX: N92.1 Excessive and frequent menstruation with irregular cycle (principal); E06.3 Autoimmune thyroiditis; Z79.890 Hormone replacement therapy; D25.9 Leiomyoma of uterus, unspecified; D68.61 Antiphospholipid syndrome; E03.9 Hypothyroidism, unspecified; N96 Recurrent pregnancy loss; F41.9 Anxiety disorder, unspecified
CPT/HCPCS: 58570; 52000; 00840; 36415; 80076; 81025; 82962; 83735; 84443; 85027; 85610; 85730; 86850; 86900; 86901; 88307; J2405; J3475

== ENCOUNTER 2025-01-21 14:52 | Emergency (ER) | payer MEDICAID, SELFPAY ==
[2025-01-21] VITALS (7 sets, daily range): BP systolic 97–124; BP diastolic 60–81; PULSE 65–101; RESP 11–18; TEMP 36.9–37; O2SAT 94–100
--- NOTE | 2025-01-21 15:40 | EKG12_ITS ---
Test Reason : cp Blood Pressure : */* mmHG Vent. Rate : 71 BPM Atrial Rate : 71 BPM P-R Int : 152 ms QRS Dur : 82 ms QT Int : 394 ms P-R-T Axes : 62 62 46 degrees QTcB Int : 428 ms Normal sinus rhythm Normal ECG Confirmed by Ish Ferrera ([id number]), editor house organ GUILLE KAUFFMAN ([id number]) on 01/23/2025 7:05:45 AM Referred By: Es/cg Confirmed By: Ish Ferrera
[2025-01-21] MEDS: 0.9% Normal Saline (1000mL) 1,000 ML 1000 ML IV (15:52)
[2025-01-21] MEDS: Ondansetron 4 MG/2 ML Vial IV (15:52)
[2025-01-21] MEDS: fentaNYL 100 MCG/2 ML Ampul 50 MCG IV ×2 (15:52→16:23)
[2025-01-21 15:59] LABS: Absolute Neutrophil Count 4.3 X10^3/uL (2.0-7.7); Basophil# 0.02 X10^3/uL; Basophil% 0.3 % (0-1); Eosinophils% 4.1 % (0-5); Hematocrit 33.5 % (37-47); Hemoglobin 9.9 g/dL (12.0-15.0); Lymphocyte % 31.5 % (19-41); Mean Corp Hgb Conc 29.6 g/dL (32-36); Mean Corpuscular Hgb 21.5 pg (27.0-32.0); Mean Corpuscular Volume 72.8 fL (81-99); Mean Platelet Vol. 9.3 fl (6.2-12.0); Monocyte% 5.5 % (0-10); NRBC Flagged by Analyzer 0 % (0-5); Neutrophil # 4.27 X10^3/uL (2.7-7.7); Neutrophil % 58.3 % (47-70); Platelet Count 371 K/mm3 (150-450); RBC Distribution Width CV 17.4 % (11.6-14.6); RBC Distribution Width SD 45.4 fl (35.1-43.9); White Blood Count 7.3 K/mm3 (4.4-11.0)
--- NOTE | 2025-01-21 16:00 | CT_ITS ---
PROCEDURE: CTA CHEST W/WO CONTRAST REASON FOR EXAM: Shortness of breath, recent surgery, high-risk PE TECHNIQUE: CTA imaging of the chest with intravenous contrast. 3D reconstructions. COMPARISON: None. FINDINGS: Hardware: None. Lymph nodes: No mediastinal hilar or axillary lymphadenopathy. Heart: Normal heart size. No pericardial effusion. RV/LV Diameter Ratio: N/A Thoracic Aorta: No thoracic aortic aneurysm or dissection. Pulmonary Vessels: No evidence of acute pulmonary emboli through the major subsegmental branches. Most Proximal Level of Embolus (if embolus present): N/A Lungs and Airways: The lungs are normally expanded and clear. Pleura: No pleural effusion. No pneumothorax. Upper Abdomen: Visualized portions of the upper abdominal viscera are unremarkable. Bones: Bone windows are unremarkable. CT/CTA Chest W/WO Contrast IMPRESSION: No CT evidence of acute pulmonary embolism. One or more dose reduction techniques were used (e.g., Automated exposure contr ol, adjustment of the mA and/or kV according to patient size, use of iterative reconstruction technique). Reading Location: [facility]
--- NOTE | 2025-01-21 16:00 | CT_ITS ---
PROCEDURE: ABDOMEN/PELVIS W IV CONT ONLY REASON FOR EXAM: Abdominal pain, postop hysterectomy TECHNIQUE: Abdomen and pelvis CT with intravenous contrast. COMPARISON: None. FINDINGS: Lung bases: Clear Liver: Diffuse fatty infiltration. Gallbladder: Unremarkable. Spleen: Unremarkable. Pancreas: Unremarkable. Adrenals: Unremarkable. Kidneys: Unremarkable. Bladder: Unremarkable. Reproductive Organs: Prior hysterectomy. Adnexal regions are unremarkable. Bowel: Moderate amount of stool noted in the colon.. Appendix: Normal. Lymph nodes: No suspicious lymph node enlargement. Vasculature: Major vascular structures are unremarkable. Peritoneum / Retroperitoneum: No ascites. No free air. Bones: Unremarkable. CT/Abdomen/Pelvis W IV Cont ONLY IMPRESSION: 1. No acute CT abnormality in the pelvis status post hysterectomy. 2. Moderate amount of stool noted in the colon. Correlate with constipation. 3. Hepatic steatosis One or more dose reduction techniques were used (e.g., Automated exposure contr ol, adjustment of the mA and/or kV according to patient size, use of iterative reconstruction technique). Reading Location: [facility]
[2025-01-21 16:12] LABS: Prothrombin Time (Protime)PT. 13.3 SECONDS (11.7-14.9)
[2025-01-21 16:13] LABS: Partial Thromboplast Time 28.8 Seconds (24.1-36.2)
[2025-01-21 16:36] LABS: ALB/GLOB Ratio 1.3 RATIO (0.9-2.4); AST(SGOT) 18 U/L (<=31); Alanine Aminotransfer ALT/SGPT 11 U/L (<=34); Albumin, Serum 4.2 g/dL (3.5-5.0); Alkaline Phosphatase 88 U/L (35-104); Anion Gap 12 (5-15); BUN 10 mg/dL (4-19); BUN/Creat Ratio 15.3 RATIO (10-20); Calcium 9.2 mg/dL (7.6-11.0); Chloride 104 mmol/L (96-108); Creatinine, Serum 0.68 mg/dL (0.70-1.20); EST Glomerular Filtration Rate 126 (>60); Globulin 3.3 g/dL (2.2-4.2); Glucose 92 mg/dL (70-99); Lipase 28 U/L (13-75); Protein, Total 7.5 g/dL (5.9-8.4); Sodium Level 139 mmol/L (133-145); Total Bilirubin 0.22 mg/dL (0.00-1.30)
[2025-01-21 16:49] LABS: Troponin T High Sensitivity < 6 ng/L (<=14)
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
[2025-01-21 16:54] LABS: Pro- Brain NATRIURETIC PEPTIDE < 36 pg/mL (<=450)
[2025-01-21] MEDS: 0.9% Normal Saline (1000mL) 1,000 ML 999 ML IV (18:08)
--- NOTE | 2025-01-21 18:17 | ED.RN ---
DISCUSSED WITH PROVIDER THE PT C/O DIZZINESS. 2ND LITER OF FLUIDS INITIATED. NO FURTHER ORDERS AT THIS TIME.
== END 2025-01-21 20:02 | disposition home or self-care (01) ==
LOC: ED 16:10
PROVIDERS: Emergency Provider Emergency Medicine; PCP Internal Medicine; Visit Provider Emergency Medicine
DX: R00.0 Tachycardia, unspecified (principal); N93.9 Abnormal uterine and vaginal bleeding, unspecified; R11.10 Vomiting, unspecified; Z90.710 Acquired absence of both cervix and uterus; F41.9 Anxiety disorder, unspecified; R55 Syncope and collapse; R07.9 Chest pain, unspecified; R06.00 Dyspnea, unspecified; R53.1 Weakness; R10.9 Unspecified abdominal pain
CPT/HCPCS: 71275; 74177; 80053; 83605; 83690; 83880; 84484; 85025; 85610; 85730; 93005; 96361; 96374; 96375; 99285; Q9967; A4216; J2405

== ENCOUNTER → 2025-02-13 | Outpatient (CLI) | payer MEDICAID, SELFPAY | END | disposition home or self-care (01) | LOC: LABSPEC 16:09 | PROVIDERS: PCP Internal Medicine; Referring Provider Obstetrics & Gynecology; Visit Provider Obstetrics & Gynecology | DX: N89.8 Other specified noninflammatory disorders of vagina (principal) | CPT/HCPCS: 87070; 87205 ==